=== PATIENT | male | born 1950 | race Caucasian/White ===

== ENCOUNTER 2017-04-11 23:14 | Observation (INO) | payer MEDICARE, OTHER ==
--- NOTE | 2017-04-11 23:51 | C.PDOC ---
History Of Present Illness Patient was brought via EMS to ER for acute ETOH intoxication. Patient denies suicidal, homicidal ideation or any physical complaints. Time Seen by Provider: 04/11/17 23:50 Chief Complaint (Nursing): Substance Abuse History Per: Patient, EMS History/Exam Limitations: no limitations Onset/Duration Of Symptoms: Hrs Current Symptoms Are (Timing): Still Present Suicide/Self Injury Attempted (Context): None Modifying Factor(s): Alcohol Severity: None Pain Scale Rating Of: 0 Associated Symptoms: denies: Depression, Suicidal Thoughts, Suicidal Plan Involuntary Hold By: None Recent travel outside of the [place]: No Past Medical History Reviewed: Historical Data, Nursing Documentation, Vital Signs Vital Signs: Last Vital Signs Temp 97.8 F 04/12/17 03:25 Pulse 71 04/12/17 03:25 Resp 18 04/12/17 03:25 BP 106/59 L 04/12/17 03:25 Pulse Ox 96 04/12/17 03:25 - Medical History PMH: Gall Bladder Disease, HTN Surgical History: Cholecystectomy Family History: States: No Known Family Hx - Social History Hx Tobacco Use: Yes Hx Alcohol Use: Yes Hx Substance Use: No - Immunization History Hx Tetanus Toxoid Vaccination: No Hx Influenza Vaccination: No Hx Pneumococcal Vaccination: No Review Of Systems Constitutional: Negative for: Fever, Chills Gastrointestinal: Negative for: Nausea, Vomiting, Diarrhea Psych: Negative for: Suicidal ideation, Other (Homicidal Ideation) Physical Exam - Physical Exam Appears: Non-toxic, Other (ETOH on breath) Skin: Warm, Dry Oral Mucosa: Moist Chest: Symmetrical, No Tenderness Cardiovascular: Rhythm Regular, No Murmur Respiratory: No Rales, No Rhonchi, No Wheezing Gastrointestinal/Abdominal: Soft, No Tenderness Neurological/Psych: Oriented x3 ED Course And Treatment O2 Sat by Pulse Oximetry: 96 (Room air) Pulse Ox Interpretation: Normal Reevaluation Time: 05:07 Reassessment Condition: Improved ED OBSERVATION Discharge: Yes Date of observation admission: 04/11/17 Time of observation admission: 23:51 - Observation admission statement Patient is being placed in observation because:: acute alcohol intoxication - Goals of Observation Goals of observation are:: sobriety - Progress Note Progress Note: 04/11/17 23:51 vitals stable 04/12/17 04:07 vitals stable Disposition Counseled Patient/Family Regarding: Studies Performed, Diagnosis, Need For Followup - Disposition Disposition: HOME/ ROUTINE Disposition Time: 23:50 Condition: FAIR - Clinical Impression Clinical Impression: Alcohol intoxication, Alcohol abuse - Scribe Statement The provider has reviewed the documentation as recorded by the Scribmilvia Gomez All medical record entries made by the Scribe were at my direction and personally dictated by me. I have reviewed the chart and agree that the record accurately reflects my personal performance of the history, physical exam, medical decision making, and the department course for this patient. I have also personally directed, reviewed, and agree with the discharge instructions and disposition. Decision To Admit - . Patient Diagnosis: Alcohol intoxication, Alcohol abuse
[2017-04-12 06:41] VITALS: BP 116/68; PULSE 81; RESP 20; TEMP 98; O2SAT 97
== END 2017-04-12 05:08 | disposition home or self-care (01) ==
LOC: C.ER 23:14 → C.9OBSV 23:51
PROVIDERS: ADMIT Emergency Medicine; ATTEND Emergency Medicine
DX: F10.129 Alcohol abuse with intoxication, unspecified (principal); I10 Essential (primary) hypertension; Z87.891 Personal history of nicotine dependence; Y90.9 Presence of alcohol in blood, level not specified
CPT/HCPCS: G0378 ×2

== ENCOUNTER 2017-04-12 13:44 | Inpatient (IN) | payer MEDICARE, OTHER ==
--- NOTE | 2017-04-12 14:06 | C.PDOC ---
History Of Present Illness 55 year old patient is brought to the ED by ambulance for public alcohol intoxication. Patient was recently here for the same reason. He was also recently released from incarceration. Patient has a history of alcohol abuse. Pt is obtunded and not answering questions. Per EMS patient denies any head injury, nausea, vomiting, or shortness of breath. Time Seen by Provider: 04/12/17 14:03 Chief Complaint (Nursing): Substance Abuse History Per: Patient, EMS History/Exam Limitations: intoxication Onset/Duration Of Symptoms: Other Current Symptoms Are (Timing): Still Present Suicide/Self Injury Attempted (Context): None Modifying Factor(s): Alcohol Severity: None Pain Scale Rating Of: 0 Recent travel outside of the [place]: No Additional History Per: EMS Past Medical History Reviewed: Historical Data, Nursing Documentation, Vital Signs Vital Signs: Last Vital Signs Temp 97.2 F L 04/12/17 16:20 Pulse 77 04/12/17 17:38 Resp 19 04/12/17 17:38 BP 116/59 L 04/12/17 17:38 Pulse Ox 94 L 04/12/17 17:38 Family History: States: Unknown Family Hx - Social History Hx Alcohol Use: Yes Hx Substance Use: No Review Of Systems Except As Marked, All Systems Reviewed And Found Negative. Constitutional: Positive for: Other (intoxicated) Respiratory: Negative for: Shortness of Breath Gastrointestinal: Negative for: Nausea, Vomiting Neurological: Negative for: Other (head injury) Psych: Negative for: Suicidal ideation Physical Exam - Physical Exam Appears: Other (elderly, disheveled, intoxicated, obtunded, not answering questions, responds purposefully to painful stimulus.) Skin: Warm, Dry Head: Atraumatic, Normacephalic Throat: Other (+AOB) Neck: Normal ROM, Supple Chest: Symmetrical Cardiovascular: Rhythm Regular Respiratory: Normal Breath Sounds, No Rales, No Rhonchi, No Wheezing Extremity: Normal ROM Neurological/Psych: No Response To Commands Pain Response: Other (arousable to painful stimuli) ED Course And Treatment - Laboratory Results Result Diagrams: 04/12/17 15:44 04/12/17 15:07 Lab Interpretation: Abnormal (ETOH 538, UDS pending) ECG: Interpreted By Me ECG Rhythm: Sinus Rhythm ECG Interpretation: Normal Rate From EC O2 Sat by Pulse Oximetry: 95 (room air) Pulse Ox Interpretation: Normal - Radiology CXR: Interpreted by Me CXR Interpretation: Yes: No Acute Disease - CT Scan/US Head CT Other Rad Studies (CT/US): Read By Radiologist (Radha Mario MD), Radiology Report Reviewed CT/US Interpretation: PROCEDURE: CT HEAD WITHOUT CONTRAST. HISTORY: Overdose. COMPARISON: None available. TECHNIQUE: Axial computed tomography images were obtained through the head/brain without intravenous contrast. Radiation dose: Total exam DLP = 773.51 MGy-cm. This CT exam was performed using one or more of the following dose reduction techniques: Automated exposure control, adjustment of the mA and/or kV according to patient size, and/ or use of iterative reconstruction technique. FINDINGS: HEMORRHAGE: Right convexity subdural hypodense collections measure approximately 11 mm and 4 mm in diameter, compatible with chronic subdural hematomas. BRAIN: Diffuse atrophy with prominence of the ventricles and sulci noted. No mass effect or edema. Intracranial vascular calcifications. Scattered periventricular and subcortical white matter hypodensities, which are nonspecific, but often seen with chronic microvascular ischemic disease. Scattered probable lacunar infarcts including 8 mm left basal ganglia lacunar type infarct. VENTRICLES: Ventricular prominence may be mildly out of proportion to sulcal size. Prominence may be due to significant central volume loss or mild chronic obstructive hydrocephalus, noncommunicating variant. Normal-pressure hydrocephalus considered only if clinical triad is present. Correlate clinically. CALVARIUM: Unremarkable. PARANASAL SINUSES: Unremarkable as visualized. No significant inflammatory changes. MASTOID AIR CELLS: Unremarkable as visualized. No inflammatory changes. OTHER FINDINGS: None. IMPRESSION: Right convexity subdural hypodense collections measure approximately 11 mm and 4 mm in diameter, compatible with chronic subdural hematomas. Correlate clinically. Ventricular prominence may be mildly out of proportion to sulcal size. Prominence may be due to significant central volume loss or mild chronic obstructive hydrocephalus, noncommunicating variant. Normal-pressure hydrocephalus considered only if clinical triad is present. Correlate clinically. There probable chronic lacunar infarcts measuring up to 8 mm in the left basal ganglia. Scattered nonspecific white matter changes are evident. Please note that MRI with diffusion imaging is more sensitive in the detection of acute ischemic event. Findings discussed with Dr. Mejias on at 342 pm. Reevaluation Time: 16:41 Reassessment Condition: Improved (gradually more arousable through multiple re- evals, approx Q hour) - Physician Consult Information Outcome Of Conversation: 1600: d/w BEATRIZ Rothman [employer]- ok observe, no acute interventions necessary. 1630: d/w Dr. Olsen- Hospitalist [employer]- ok to Tele Obs. Medical Decision Making Medical Decision Making: acute on chronic alcohol intox prob chronic SDH's and hydrocephalus- contributing to pt's ataxia and frequent falls, no acute brain bleeds. Disposition Doctor Will See Patient In The: Hospital Counseled Patient/Family Regarding: Studies Performed, Diagnosis - Disposition Disposition: HOSPITALIZED Disposition Time: 16:45 Condition: FAIR - Clinical Impression Clinical Impression: Alcohol abuse, Subdural hematoma, Hydrocephalus - Scribe Statement The provider has reviewed the documentation as recorded by the Scribe Lee Ann Shaw Provider Attestation: All medical record entries made by the Scribe were at my direction and personally dictated by me. I have reviewed the chart and agree that the record accurately reflects my personal performance of the history, physical exam, medical decision making, and the department course for this patient. I have also personally directed, reviewed, and agree with the discharge instructions and disposition.
--- NOTE | 2017-04-12 14:58 | RAD ---
HISTORY: Overdosed COMPARISON: None available. TECHNIQUE: Chest, one view. FINDINGS: LUNGS: Biapical pleural thickening. No focal consolidation. Please note that chest x-ray has limited sensitivity for the detection of pulmonary masses. PLEURA: No significant pleural effusion identified. No definite pneumothorax . CARDIOVASCULAR: Heart size appears top normal. OSSEOUS STRUCTURES: Osseous demineralization. Degenerative changes of the spine and shoulders. VISUALIZED UPPER ABDOMEN: Mild elevation of the right hemidiaphragm. OTHER FINDINGS: None. IMPRESSION: No active disease. Incidental findings as above.
[2017-04-12 15:37] LABS: ALB/GLOB RATIO 1.4 (1.0-2.1); ALKALINE PHOSPHATASE 53 U/L (38-126); AST/SGOT 35 U/L (17-59); BILIRUBIN,TOTAL 0.4 mg/dL (0.2-1.3); CARBON DIOXIDE 24 mmol/L (22-30); GFR AFRICAN-AMERICAN > 60; TOTAL PROTEIN 6.9 g/dL (6.3-8.3)
[2017-04-12 15:38] LABS: ALT/SGPT 11 U/L (21-72); BLOOD UREA NITROGEN 11 mg/dL (9-20); CALCIUM 8.2 mg/dl (8.6-10.4); CHLORIDE 103 mmol/L (98-107); GLUCOSE,RANDOM 112 mg/dL (75-110); POTASSIUM 4.1 mmol/L (3.6-5.2); SODIUM 143 mmol/L (132-148)
--- NOTE | 2017-04-12 15:46 | CT ---
PROCEDURE: CT HEAD WITHOUT CONTRAST. HISTORY: Overdose COMPARISON: None available. TECHNIQUE: Axial computed tomography images were obtained through the head/brain without intravenous contrast. Radiation dose: Total exam DLP = 773.51 MGy-cm. This CT exam was performed using one or more of the following dose reduction techniques: Automated exposure control, adjustment of the mA and/or kV according to patient size, and/or use of iterative reconstruction technique. FINDINGS: HEMORRHAGE: Right convexity subdural hypodense collections measure approximately 11 mm and 4 mm in diameter, compatible with chronic subdural hematomas. BRAIN: Diffuse atrophy with prominence of the ventricles and sulci noted. No mass effect or edema. Intracranial vascular calcifications. Scattered periventricular and subcortical white matter hypodensities, which are nonspecific, but often seen with chronic microvascular ischemic disease. Scattered probable lacunar infarcts including 8 mm left basal ganglia lacunar type infarct. VENTRICLES: Ventricular prominence may be mildly out of proportion to sulcal size. Prominence may be due to significant central volume loss or mild chronic obstructive hydrocephalus, noncommunicating variant. Normal-pressure hydrocephalus considered only if clinical triad is present. Correlate clinically. CALVARIUM: Unremarkable. PARANASAL SINUSES: Unremarkable as visualized. No significant inflammatory changes. MASTOID AIR CELLS: Unremarkable as visualized. No inflammatory changes. OTHER FINDINGS: None. IMPRESSION: Right convexity subdural hypodense collections measure approximately 11 mm and 4 mm in diameter, compatible with chronic subdural hematomas. Correlate clinically. Ventricular prominence may be mildly out of proportion to sulcal size. Prominence may be due to significant central volume loss or mild chronic obstructive hydrocephalus, noncommunicating variant. Normal-pressure hydrocephalus considered only if clinical triad is present. Correlate clinically. There probable chronic lacunar infarcts measuring up to 8 mm in the left basal ganglia. Scattered nonspecific white matter changes are evident. Please note that MRI with diffusion imaging is more sensitive in the detection of acute ischemic event. Findings discussed with Dr. Mejias on 04/12/17 at 342 pm.
[2017-04-12 15:49] LABS: BASO # 0.1 K/uL (0.0-0.2); BASO % 1.1 % (0.0-2.0); EOS # 0.4 K/uL (0.0-0.7); EOS % 4.1 % (0.0-4.0); HEMATOCRIT 37.3 % (35.0-51.0); LYMPH # 2.9 K/uL (1.0-4.3); LYMPH % 28.4 % (20.0-40.0); MEAN CELL VOLUME 91.1 fL (80.0-94.0); MEAN CORPUSCULAR HGB CONC 32.9 g/dL (33.0-37.0); MEAN PLATELET VOLUME 6.2 fL (7.2-11.7); MONO % 9.3 % (0.0-10.0); NRBC % 0.1 % (0.0-2.0); RED CELL DISTRIBUTION WIDTH 14.6 % (11.5-14.5); WHITE BLOOD COUNT 10.3 K/uL (4.8-10.8)
[2017-04-12 16:00] LABS: ALCOHOL SERUM 538 mg/dl (0-10)
--- NOTE | 2017-04-12 17:32 | CP.PCM.HP ---
<Trevon Sutherland - Last Filed: 04/12/17 17:29> History of Present Illness - History of Present Illness History of Present Illness: This is a 55 yo male with unknown past medical hx presenting to ER in obtunded state. Pt apparently stumbled into ER. He is resting in bed. Hx unable to be obtained. ROS unable to be obtained. Pt is in obtunded state. Head CT shows chronic subdural hematoma and alcohol 538, unable to find past records. PMH: Unknown PSH: Unknown Allergies: Unknown FH: Unknown Current meds: Unknown Social hx: Heavy drinker. Other social hx unknown. Present on Admission - Present on Admission Any Indicators Present on Admission: No History of DVT/PE: No History of Uncontrolled Diabetes: No Urinary Catheter: No Decubitus Ulcer Present: No Review of Systems - Review of Systems Systems not reviewed;Unavailable: Altered Mental Status, Intoxicated Past Patient History - Infectious Disease Hx of Infectious Diseases: None - Tetanus Immunizations Tetanus Immunization: Unknown - Past Medical History & Family History Past Medical History?: Yes Past Family History: Reviewed and not pertinent - Past Social History Smoking Status: Unknown If Ever Smoked Chewing Tobacco Use: No Cigar Use: No Alcohol: > 2 Drinks/Day Drugs: Denies Home Situation {Lives}: Homeless Domestic Violence: Negative - PSYCHIATRIC Hx Substance Use: No Meds Allergies/Adverse Reactions: Allergies Allergy/AdvReac Type Severity Reaction Status Date / Time Unobtainable Allergy Unverified 04/12/17 13:56 Physical Exam - Constitutional Appears: Other Additional comments: Obtunded, disheveled - Head Exam Head Exam: ATRAUMATIC, NORMAL INSPECTION, NORMOCEPHALIC - Eye Exam Eye Exam: EOMI - ENT Exam ENT Exam: Mucous Membranes Moist - Neck Exam Neck exam: Positive for: Full Rom, Normal Inspection - Respiratory Exam Respiratory Exam: Decreased Breath Sounds. absent: Respiratory Distress - Cardiovascular Exam Cardiovascular Exam: +S1, +S2 - GI/Abdominal Exam GI & Abdominal Exam: Normal Bowel Sounds, Soft. absent: Tenderness - Extremities Exam Extremities exam: Positive for: full ROM, normal inspection - Back Exam Back exam: NORMAL INSPECTION - Neurological Exam Neurological exam: Altered - Psychiatric Exam Additional comments: Unable to assess - Skin Skin Exam: Dry, Intact, Normal Color, Warm Results - Vital Signs Recent Vital Signs: Last Vital Signs Temp 97.2 F L 04/12/17 16:20 Pulse 85 04/12/17 16:33 Resp 18 04/12/17 16:33 BP 111/68 04/12/17 16:33 Pulse Ox 95 04/12/17 16:55 - Labs Result Diagrams: 04/12/17 15:44 04/12/17 15:07 Labs: Laboratory Results - last 24 hr 04/12/17 16:54 Urine Opiates Screen Negative Urine Methadone Screen Negative Ur Barbiturates Screen Negative Ur Phencyclidine Scrn Negative Ur Amphetamines Screen Negative U Benzodiazepines Scrn Negative U Oth Cocaine Metabols Negative U Cannabinoids Screen Negative Assessment & Plan - Assessment and Plan (Free Text) Assessment: This is a 55 yo male with unknown past medical or surgical hx presenting with obtunded state 1. Alcohol abuse -ativan IV prn -o2 by nasal cannula -CIWA protocol -neurochecks q 2 -NPO -neurology consult. Dr. Yara Albert -telemetry bed -seizure precautions -aspiration precautions -fall precautions -am labs -head ct shows evidence of chronic subdural hematoma -neurosx: no intervention -alcohol level 538 2. GI/DVT ppx -scds -protonix daily discussed with Dr. Chang. <Wu Chang - Last Filed: 05/19/17 12:20> Results - Vital Signs Recent Vital Signs: Last Vital Signs Temp 97.9 F 04/14/17 08:48 Pulse 87 04/14/17 08:48 Resp 20 04/14/17 08:48 BP 147/77 04/14/17 08:48 Pulse Ox 97 04/14/17 08:48 - Labs Result Diagrams: 04/14/17 07:36 04/14/17 07:36 Attending/Attestation - Attestation I have personally seen and examined this patient.: Yes I have fully participated in the care of the patient.: Yes I have reviewed all pertinent clinical information: Yes Notes (Text): Patient Seen and examined with the resident. Agree with the resident's evaluation, assessment and plan. This is a 55 yo male with unknown past medical or surgical hx presenting with obtunded state 1. Alcohol abuse 2. Chronic Subdural Hematoma 3. Alcohol Intoxication
[2017-04-12] MEDS ORDERED: Multivitamin (MVI) 10 ML, Thiamine 100 MG, Folic Acid 1 MG in Sodium Chloride 0.9% 1,00... IV ONE (17:52)
--- NOTE | 2017-04-12 18:45 | CON ---
DATE: 04/12/2017 This obviously unknown individual was brought to the [facility] ER markedly intoxicated with an alcohol level of 550. CT of the brain was performed which showed a small subdural collection. Neuro surgical evaluation was requested. No history can be obtained obviously. His age was designated as 55. I am not sure how this was obtai luz. PHYSICAL EXAMINATION: GENERAL: The patient is just lying on his side in the position. He is moving all 4 extremitie s. There is no verbalization. There is no command following. CT of the brain shows a small right anterior frontal chronic subdural collection with minimal, if any , mass effect. IMPRESSION AND PLAN: The subdural is a red marquez, of no clinical significance at this time. Obvio usly, he is treated for his alcohol intoxication. My only recommendation, if this was somehow feasib le, would be to repeat the scan in approximately 2-3 weeks. Christiano Jerry MD cc: [id number] TT: 04/12/2017 18:44:20 Confirmation # [id number] Dictation # [id number] alcides
[2017-04-13 01:29] VITALS: RESP 20
[2017-04-13 08:16] LABS: BASO # 0.1 K/uL (0.0-0.2); BASO % 0.8 % (0.0-2.0); EOS # 0.1 K/uL (0.0-0.7); EOS % 1.1 % (0.0-4.0); HEMATOCRIT 38.2 % (35.0-51.0); LYMPH # 2.2 K/uL (1.0-4.3); LYMPH % 15.9 % (20.0-40.0); MEAN CELL VOLUME 91.2 fL (80.0-94.0); MEAN CORPUSCULAR HEMOGLOBIN 29.8 pg (27.0-31.0); MEAN CORPUSCULAR HGB CONC 32.7 g/dL (33.0-37.0); MONO # 0.7 K/uL (0.0-0.8); RED CELL DISTRIBUTION WIDTH 14.5 % (11.5-14.5); WHITE BLOOD COUNT 13.8 K/uL (4.8-10.8)
[2017-04-13 08:32] LABS: CHLORIDE 108 mmol/L (98-107)
[2017-04-13 08:33] LABS: POTASSIUM 3.6 mmol/L (3.6-5.2); SODIUM 145 mmol/L (132-148)
[2017-04-13 08:35] LABS: ALB/GLOB RATIO 1.2 (1.0-2.1); ALKALINE PHOSPHATASE 68 U/L (38-126); ALT/SGPT 20 U/L (21-72); AST/SGOT 37 U/L (17-59); BILIRUBIN,TOTAL 0.4 mg/dL (0.2-1.3); BLOOD UREA NITROGEN 13 mg/dL (9-20); CARBON DIOXIDE 20 mmol/L (22-30); GFR AFRICAN-AMERICAN > 60; GLUCOSE,RANDOM 61 mg/dL (75-110); TOTAL PROTEIN 6.7 g/dL (6.3-8.3)
[2017-04-13 08:36] LABS: MAGNESIUM 1.6 mg/dL (1.6-2.3); PHOSPHOROUS 3.8 mg/dL (2.5-4.5)
[2017-04-13] MEDS: Dextrose 50% SYRINGE Inj (50 ml) IV STA ×2 (09:30→09:50)
--- NOTE | 2017-04-13 13:47 | CON ---
DATE: 04/13/2017 REASON FOR CONSULTATION: Subdural hematoma. HISTORY OF PRESENTING ILLNESS: The patient is a 67-year-old male who was brought to the hospital wit h an obtunded state. The patient apparently stumbled into ER. The patient is not able to give histo ry. The patient had a CT scan of the head done, which shows chronic subdural hematoma and an alcohol level of 538. The patient unable to give any history. REVIEW OF SYSTEMS: The patient is not answering questions; however, saying no to headache or dizzine ss. There is no cough, no sputum production, no pyuria. PAST MEDICAL HISTORY: Unknown. MEDICATIONS AT HOME: Unknown. SOCIAL HISTORY: Positive for alcohol abuse. Positive for smoking. FAMILY HISTORY: Unknown. PHYSICAL EXAMINATION: GENERAL: The patient is an elderly male lying on the bed in no acute distress. VITAL SIGNS: Blood pressure is 123/76, heart rate is 84 per minute, breathing at a rate of 16 per mi nute, temperature is 98.1 degrees Fahrenheit. HEENT: Normocephalic, atraumatic. NECK: Supple. There are no carotid bruits. LUNGS: Clear. CARDIOVASCULAR: S1, S2 audible. No murmurs. ABDOMEN: Soft and nontender with bowel sounds present. NEUROLOGIC EXAMINATION: Mental status: The patient is awake and alert. He follows some simple comm ands. He is not verbalizing. Cranial nerve examination: Pupils 3 mm bilaterally reactive to light. Visual blum are full to threat. Extraocular movements are intact. There is no facial asymmetry. He is moving all 4 extremities with slightly less movement of the right upper extremity. Sensory: He withdraws all 4 extremities to noxious painful stimuli. Gait is deferred at the moment. LABORATORY DATA: Labs reviewed, shows WBC of 10.3, hemoglobin 12.3, hematocrit of 37.3 and platelets of 334. Sodium is 143, potassium 4.1, chloride of 103, carbon dioxide 24, BUN of 11, creatinine 0.7 , and glucose of 119. His alcohol level was 538. He had a CT scan of the head done which showed rig ht convexity subdural hypodense collection, measures approximately 11 mm and 4 mm in diameter compati ble with chronic subdural hematoma. IMPRESSION: 1. Altered mental status, which appears to be secondary to alcohol intoxication. 2. Chronic subdural hematoma. RECOMMENDATION: 1. The patient to have an MRI of the brain without contrast as there appears to be slight weakness i n the right upper extremity. 2. The patient to have IV hydration. 3. The patient to be on Ativan for alcohol withdrawal to prevent alcohol withdrawal symptoms. 4. The patient to have multivitamin and thiamine. 5. The patient was evaluated by neurosurgery and no neurosurgical intervention is recommended at pre sent. The patient to have repeat CT head in 10 days. However, I will obtain MRI of the brain while patient is here to see any other focal neurologic deficits responsible for patient's mental status ch anges except alcohol intoxication. 6. Please continue other treatment and supportive care. Thank you for the opportunity to participate in the care of this patient. Yara Albert MD cc: [id number] TT: 04/13/2017 13:47:00 Confirmation # [id number] Dictation # [id number]
--- NOTE | 2017-04-13 13:59 | CP.PCM.PN ---
<Trevon Sutherland - Last Filed: 04/13/17 13:59> Subjective - Date & Time of Evaluation Date of Evaluation: 04/13/17 Time of Evaluation: 13:55 - Subjective Subjective: Med progress note. Attending: Dr. Chang Pt seen and examined at bedside. No acute distress. No events overnight. Pt to go for MRI, unable to provide hx. ROS unable to be obtained. Objective - Vital Signs/Intake and Output Vital Signs (last 24 hours): Temp Pulse Resp BP Pulse Ox 98.1 F 80 20 123/76 95 04/12/17 23:45 04/13/17 07:30 04/12/17 23:45 04/12/17 23:45 04/12/17 23:45 Intake and Output: 04/13/17 04/13/17 06:59 18:59 Intake Total 800 Output Total 200 Balance 600 - Medications Medications: Current Medications Folic Acid (Folic Acid) 1 mg PO DAILY MARGO Lorazepam (Ativan) 2 mg IVP Q6H PRN PRN Reason: Anxiety Last Admin: 04/13/17 11:30 Dose: 2 mg Pantoprazole Sodium (Protonix Inj) 40 mg IVP DAILY MARGO Last Admin: 04/13/17 11:33 Dose: 40 mg Thiamine HCl (Vitamin B1 Tab) 100 mg PO DAILY [facility] - Labs Labs: 04/13/17 07:58 04/13/17 07:58 - Constitutional Appears: Non-toxic, No Acute Distress, Unkempt - Head Exam Head Exam: ATRAUMATIC, NORMAL INSPECTION, NORMOCEPHALIC - Eye Exam Eye Exam: EOMI - ENT Exam ENT Exam: Mucous Membranes Moist - Neck Exam Neck Exam: Full ROM, Normal Inspection - Respiratory Exam Respiratory Exam: NORMAL BREATHING PATTERN. absent: Respiratory Distress - Cardiovascular Exam Cardiovascular Exam: +S1, +S2 - GI/Abdominal Exam GI & Abdominal Exam: Soft, Normal Bowel Sounds. absent: Tenderness - Extremities Exam Extremities Exam: Full ROM, Normal Inspection - Back Exam Back Exam: NORMAL INSPECTION - Neurological Exam Neurological Exam: Altered - Psychiatric Exam Psychiatric exam: Flat Affect - Skin Skin Exam: Dry, Intact, Normal Color, Warm Assessment and Plan - Assessment and Plan (Free Text) Assessment: This is a 55 yo male with unknown past medical or surgical hx presenting with obtunded state 1. Alcohol abuse -ativan IV prn -o2 by nasal cannula -EVEWA protocol -neurochecks q 2 -NPO>> changed to regular diet. -neurology consult. Dr. Yara Albert -telemetry bed -seizure precautions -aspiration precautions -fall precautions -am labs -head ct shows evidence of chronic subdural hematoma -neurosx: no intervention -alcohol level 538 on admission -pt to go for mri without contrast of the brain for some weakness in extremities -thaimine 100 mg po daily -folic acid 1 mg p daily 2. GI/DVT ppx -scds -protonix daily discussed with Dr. Chnag. <Wu Chang - Last Filed: 05/19/17 12:21> Objective - Vital Signs/Intake and Output Vital Signs (last 24 hours): Temp Pulse Resp BP Pulse Ox 97.9 F 87 20 147/77 97 04/14/17 08:48 04/14/17 08:48 04/14/17 08:48 04/14/17 08:48 04/14/17 08:48 - Labs Labs: 04/14/17 07:36 04/14/17 07:36 Attending/Attestation - Attestation I have personally seen and examined this patient.: Yes I have fully participated in the care of the patient.: Yes I have reviewed all pertinent clinical information, including history, physical exam and plan: Yes Notes (Text): Patient Seen and examined with the resident. Agree with the resident's evaluation, assessment and plan. This is a 55 yo male with unknown past medical or surgical hx presenting with obtunded state 1. Alcohol abuse 2. Chronic Subdural Hematoma 3. Alcohol Intoxication
[2017-04-14 08:01] LABS: CHLORIDE 98 mmol/L (98-107); SODIUM 135 mmol/L (132-148)
[2017-04-14 08:02] LABS: POTASSIUM 3.7 mmol/L (3.6-5.2)
[2017-04-14 08:03] LABS: BASO # 0.1 K/uL (0.0-0.2); BASO % 1.1 % (0.0-2.0); EOS # 0.1 K/uL (0.0-0.7); EOS % 0.7 % (0.0-4.0); GFR AFRICAN-AMERICAN > 60; HEMATOCRIT 38.9 % (35.0-51.0); LYMPH % 22.5 % (20.0-40.0); MEAN CELL VOLUME 90.5 fL (80.0-94.0); MEAN CORPUSCULAR HEMOGLOBIN 30.3 pg (27.0-31.0); MEAN CORPUSCULAR HGB CONC 33.4 g/dL (33.0-37.0); MEAN PLATELET VOLUME 6.5 fL (7.2-11.7); MONO % 10.9 % (0.0-10.0); NRBC % 0.1 % (0.0-2.0); RED CELL DISTRIBUTION WIDTH 14.6 % (11.5-14.5); WHITE BLOOD COUNT 8.9 K/uL (4.8-10.8)
[2017-04-14 08:04] LABS: ALB/GLOB RATIO 1.4 (1.0-2.1); ALKALINE PHOSPHATASE 65 U/L (38-126); ALT/SGPT 15 U/L (21-72); AST/SGOT 32 U/L (17-59); BLOOD UREA NITROGEN 10 mg/dL (9-20); CARBON DIOXIDE 24 mmol/L (22-30); GLUCOSE,RANDOM 92 mg/dL (75-110); PHOSPHOROUS 2.5 mg/dL (2.5-4.5); TOTAL PROTEIN 6.5 g/dL (6.3-8.3)
[2017-04-14 08:05] LABS: CALCIUM 8.5 mg/dl (8.6-10.4); MAGNESIUM 1.7 mg/dL (1.6-2.3)
[2017-04-14 08:49] VITALS: BP 147/77; PULSE 87; TEMP 97.9; O2SAT 97
--- NOTE | 2017-04-14 09:24 | CP.PCM.DIS ---
<Trevon Sutherland - Last Filed: 04/14/17 09:27> Provider - Provider Date of Admission: 04/12/17 16:39 Attending physician: Perfecto Olsen DO Consults: Neurology 1. Dr. Yara Albert Time Spent in preparation of Discharge (in minutes): 45 Hospital Course - Lab Results Lab Results: Most Recent Lab Values WBC 8.9 K/uL (4.8-10.8) 04/14/17 07:36 RBC 4.30 Mil/uL (4.40-5.90) L 04/14/17 07:36 Hgb 13.0 g/dL (12.0-18.0) 04/14/17 07:36 Hct 38.9 % (35.0-51.0) 04/14/17 07:36 MCV 90.5 fL (80.0-94.0) 04/14/17 07:36 MCH 30.3 pg (27.0-31.0) 04/14/17 07:36 MCHC 33.4 g/dL (33.0-37.0) 04/14/17 07:36 RDW 14.6 % (11.5-14.5) H 04/14/17 07:36 Plt Count 261 K/uL (130-400) 04/14/17 07:36 MPV 6.5 fL (7.2-11.7) L 04/14/17 07:36 Neut % (Auto) 64.8 % (50.0-75.0) 04/14/17 07:36 Lymph % (Auto) 22.5 % (20.0-40.0) 04/14/17 07:36 Gem % (Auto) 10.9 % (0.0-10.0) H 04/14/17 07:36 Eos % (Auto) 0.7 % (0.0-4.0) 04/14/17 07:36 Baso % (Auto) 1.1 % (0.0-2.0) 04/14/17 07:36 Neut # 5.7 K/uL (1.8-7.0) 04/14/17 07:36 Lymph # 2.0 K/uL (1.0-4.3) 04/14/17 07:36 Gem # 1.0 K/uL (0.0-0.8) H 04/14/17 07:36 Eos # 0.1 K/uL (0.0-0.7) 04/14/17 07:36 Baso # 0.1 K/uL (0.0-0.2) 04/14/17 07:36 Sodium 135 mmol/L (132-148) 04/14/17 07:36 Potassium 3.7 mmol/L (3.6-5.2) 04/14/17 07:36 Chloride 98 mmol/L (98-107) 04/14/17 07:36 Carbon Dioxide 24 mmol/L (22-30) 04/14/17 07:36 Anion Gap 15 (10-20) 04/14/17 07:36 BUN 10 mg/dL (9-20) 04/14/17 07:36 Creatinine 0.6 MG/DL (0.8-1.5) L 04/14/17 07:36 Est GFR ( Amer) > 60 04/14/17 07:36 Est GFR (Non-Af Amer) > 60 04/14/17 07:36 POC Glucose (mg/dL) 208 mg/dL (65-110) H 04/13/17 11:47 Random Glucose 92 mg/dL (75-110) 04/14/17 07:36 Calcium 8.5 mg/dl (8.6-10.4) L 04/14/17 07:36 Phosphorus 2.5 mg/dL (2.5-4.5) 04/14/17 07:36 Magnesium 1.7 mg/dL (1.6-2.3) 04/14/17 07:36 Total Bilirubin 1.0 mg/dL (0.2-1.3) 04/14/17 07:36 AST 32 U/L (17-59) 04/14/17 07:36 ALT 15 U/L (21-72) L D 04/14/17 07:36 Alkaline Phosphatase 65 U/L (38-126) 04/14/17 07:36 Total Protein 6.5 g/dL (6.3-8.3) 04/14/17 07:36 Albumin 3.8 g/dL (3.5-5.0) 04/14/17 07:36 Globulin 2.8 gm/dL (2.2-3.9) 04/14/17 07:36 Albumin/Globulin Ratio 1.4 (1.0-2.1) 04/14/17 07:36 Salicylates < 1.0 mg/dL 1 04/12/17 16:08 Urine Opiates Screen Negative (NEGATIVE) 04/12/17 16:54 Urine Methadone Screen Negative (NEGATIVE) 04/12/17 16:54 Acetaminophen < 10.0 ug/mL (10.0-30.0) L 04/12/17 16:08 Ur Barbiturates Screen Negative (NEGATIVE) 04/12/17 16:54 Ur Phencyclidine Scrn Negative (NEGATIVE) 04/12/17 16:54 Ur Amphetamines Screen Negative (NEGATIVE) 04/12/17 16:54 U Benzodiazepines Scrn Negative (NEGATIVE) 04/12/17 16:54 U Oth Cocaine Metabols Negative (NEGATIVE) 04/12/17 16:54 U Cannabinoids Screen Negative (NEGATIVE) 04/12/17 16:54 Alcohol, Quantitative 538 mg/dl (0-10) H 04/12/17 15:07 - Hospital Course Hospital Course: Admit date- April 12, 2017 Pt left AMA April 14, 2017 Attending: Dr. Chang Consults. 1. Yara Albert- Neurology 2. Claritza- Neurosurgery Discharge diagnoses 1. Alcohol abuse 2. Chronic subdural hematoma 3. Weakness upper ext. HPI: see h/p Lab data: see lab data section Hospital course This is a 55 yo male with unknown past medical hx presenting to ER in obtunded state. Pt apparently stumbled into ER. He is resting in bed. Hx unable to be obtained. ROS unable to be obtained. Pt is in obtunded state. Head CT shows chronic subdural hematoma and alcohol 538, unable to find past records. 1. Alcohol abuse -ativan IV prn -o2 by nasal cannula -CIWA protocol -neurochecks q 2 -NPO>> changed to regular diet. -neurology consult. Dr. Yara Albert -telemetry bed -seizure precautions -aspiration precautions -fall precautions -am labs -head ct shows evidence of chronic subdural hematoma -neurosx: no intervention -alcohol level 538 on admission -pt to go for mri without contrast of the brain for some weakness in extremities -thaimine 100 mg po daily -folic acid 1 mg p daily 2. weakness in the upper extremity -neurology consult. -MRI pending 3. GI/DVT ppx -scds -protonix daily Discharge meds/instructions Pt left against medical advice. Pt explained all risks. - Date & Time of H&P Date of H&P: 04/12/17 Time of H&P: 17:29 Discharge Exam - Head Exam Head Exam: ATRAUMATIC, NORMAL INSPECTION, NORMOCEPHALIC - Eye Exam Eye Exam: EOMI - ENT Exam ENT Exam: Mucous Membranes Dry - Neck Exam Neck exam: Full Rom, Normal Inspection - Respiratory Exam Respiratory Exam: NORMAL BREATHING PATTERN - Cardiovascular Exam Cardiovascular Exam: +S1, +S2 - GI/Abdominal Exam GI & Abdominal Exam: Normal Bowel Sounds - Extremities Exam Extremities exam: full ROM, normal inspection - Neurological Exam Neurological exam: Alert, CN II-XII Intact, Oriented x3 - Psychiatric Exam Psychiatric exam: Flat Affect - Skin Skin Exam: Dry, Intact, Normal Color, Warm Discharge Plan - Follow Up Plan Condition: FAIR Disposition: AGAINST MEDICAL ADVICE <Wu Chang - Last Filed: 05/19/17 12:22> Provider - Provider Date of Admission: 04/12/17 16:39 Attending physician: Perfecto Olsen, Hospital Course - Lab Results Lab Results: Most Recent Lab Values WBC 8.9 K/uL (4.8-10.8) 04/14/17 07:36 RBC 4.30 Mil/uL (4.40-5.90) L 04/14/17 07:36 Hgb 13.0 g/dL (12.0-18.0) 04/14/17 07:36 Hct 38.9 % (35.0-51.0) 04/14/17 07:36 MCV 90.5 fL (80.0-94.0) 04/14/17 07:36 MCH 30.3 pg (27.0-31.0) 04/14/17 07:36 MCHC 33.4 g/dL (33.0-37.0) 04/14/17 07:36 RDW 14.6 % (11.5-14.5) H 04/14/17 07:36 Plt Count 261 K/uL (130-400) 04/14/17 07:36 MPV 6.5 fL (7.2-11.7) L 04/14/17 07:36 Neut % (Auto) 64.8 % (50.0-75.0) 04/14/17 07:36 Lymph % (Auto) 22.5 % (20.0-40.0) 04/14/17 07:36 Gem % (Auto) 10.9 % (0.0-10.0) H 04/14/17 07:36 Eos % (Auto) 0.7 % (0.0-4.0) 04/14/17 07:36 Baso % (Auto) 1.1 % (0.0-2.0) 04/14/17 07:36 Neut # 5.7 K/uL (1.8-7.0) 04/14/17 07:36 Lymph # 2.0 K/uL (1.0-4.3) 04/14/17 07:36 Gem # 1.0 K/uL (0.0-0.8) H 04/14/17 07:36 Eos # 0.1 K/uL (0.0-0.7) 04/14/17 07:36 Baso # 0.1 K/uL (0.0-0.2) 04/14/17 07:36 Sodium 135 mmol/L (132-148) 04/14/17 07:36 Potassium 3.7 mmol/L (3.6-5.2) 04/14/17 07:36 Chloride 98 mmol/L (98-107) 04/14/17 07:36 Carbon Dioxide 24 mmol/L (22-30) 04/14/17 07:36 Anion Gap 15 (10-20) 04/14/17 07:36 BUN 10 mg/dL (9-20) 04/14/17 07:36 Creatinine 0.6 MG/DL (0.8-1.5) L 04/14/17 07:36 Est GFR ( Amer) > 60 04/14/17 07:36 Est GFR (Non-Af Amer) > 60 04/14/17 07:36 POC Glucose (mg/dL) 208 mg/dL (65-110) H 04/13/17 11:47 Random Glucose 92 mg/dL (75-110) 04/14/17 07:36 Calcium 8.5 mg/dl (8.6-10.4) L 04/14/17 07:36 Phosphorus 2.5 mg/dL (2.5-4.5) 04/14/17 07:36 Magnesium 1.7 mg/dL (1.6-2.3) 04/14/17 07:36 Total Bilirubin 1.0 mg/dL (0.2-1.3) 04/14/17 07:36 AST 32 U/L (17-59) 04/14/17 07:36 ALT 15 U/L (21-72) L D 04/14/17 07:36 Alkaline Phosphatase 65 U/L (38-126) 04/14/17 07:36 Total Protein 6.5 g/dL (6.3-8.3) 04/14/17 07:36 Albumin 3.8 g/dL (3.5-5.0) 04/14/17 07:36 Globulin 2.8 gm/dL (2.2-3.9) 04/14/17 07:36 Albumin/Globulin Ratio 1.4 (1.0-2.1) 04/14/17 07:36 Salicylates < 1.0 mg/dL 1 04/12/17 16:08 Urine Opiates Screen Negative (NEGATIVE) 04/12/17 16:54 Urine Methadone Screen Negative (NEGATIVE) 04/12/17 16:54 Acetaminophen < 10.0 ug/mL (10.0-30.0) L 04/12/17 16:08 Ur Barbiturates Screen Negative (NEGATIVE) 04/12/17 16:54 Ur Phencyclidine Scrn Negative (NEGATIVE) 04/12/17 16:54 Ur Amphetamines Screen Negative (NEGATIVE) 04/12/17 16:54 U Benzodiazepines Scrn Negative (NEGATIVE) 04/12/17 16:54 U Oth Cocaine Metabols Negative (NEGATIVE) 04/12/17 16:54 U Cannabinoids Screen Negative (NEGATIVE) 04/12/17 16:54 Alcohol, Quantitative 538 mg/dl (0-10) H 04/12/17 15:07 Attending/Attestation - Attestation I have personally seen and examined this patient.: Yes I have fully participated in the care of the patient.: Yes I have reviewed all pertinent clinical information, including history, physical exam and plan: Yes Notes (Text): Patient Seen and examined with the resident. Agree with the resident's evaluation, assessment and plan. This is a 55 yo male with unknown past medical or surgical hx presenting with obtunded state 1. Alcohol abuse 2. Chronic Subdural Hematoma 3. Alcohol Intoxication Patient left against medical advice despite attempt to educate re risk of and injury.
--- NOTE | 2017-04-17 21:33 | CARD ---
APPROVED REPORT EKG Measurement Heart [id number] <Conclusion> Normal sinus rhythm Possible Left atrial enlargement Borderline ECG
== END 2017-04-14 09:00 | disposition left against medical advice (07) | DRG 894 ==
LOC: C.ER 13:44 → EDBD 16:39 → MERGE 16:39 → C.9E 16:39 → C.6T 17:17 → C.9E 17:23 → C.6T 17:53
PROVIDERS: ADMIT Hospitalist; ATTEND Hospitalist
DX: F10.120 Alcohol abuse with intoxication, uncomplicated (principal); S06.5X0S Traumatic subdural hemorrhage without loss of consciousness, sequela; R41.82 Altered mental status, unspecified; Y90.8 Blood alcohol level of 240 mg/100 ml or more

== ENCOUNTER 2018-03-15 14:28 | Emergency (ER) | payer MEDICARE, OTHER ==
[2018-03-15 14:30] VITALS: BMI 24.0
[2018-03-15 15:14] LABS: BASO # 0.1 K/uL (0.0-0.2); BASO % 0.9 % (0.0-2.0); EOS # 0.6 K/uL (0.0-0.7); EOS % 7.7 % (0.0-4.0); HEMOGLOBIN 12.9 g/dL (12.0-18.0); LYMPH # 2.7 K/uL (1.0-4.3); LYMPH % 37.4 % (20.0-40.0); MEAN CELL VOLUME 98.4 fL (80.0-94.0); MEAN CORPUSCULAR HEMOGLOBIN 33.9 pg (27.0-31.0); MEAN CORPUSCULAR HGB CONC 34.5 g/dL (33.0-37.0); MEAN PLATELET VOLUME 6.7 fL (7.2-11.7); MONO # 0.6 K/uL (0.0-0.8); MONO % 7.7 % (0.0-10.0); NEUT # 3.4 K/uL (1.8-7.0); NEUT % 46.3 % (50.0-75.0); RBC 3.79 Mil/uL (4.40-5.90); RED CELL DISTRIBUTION WIDTH 14.4 % (11.5-14.5); WHITE BLOOD COUNT 7.3 K/uL (4.8-10.8)
[2018-03-15 15:29] LABS: ALB/GLOB RATIO 1.2 (1.0-2.1); ALBUMIN 4.1 g/dL (3.5-5.0); ALT/SGPT 27 U/L (21-72); AST/SGOT 63 U/L (17-59); BLOOD UREA NITROGEN 20 mg/dL (9-20); CALCIUM 9.3 mg/dl (8.6-10.4); GFR AFRICAN-AMERICAN > 60; GFR NON-AFRICAN AMERICAN > 60
--- NOTE | 2018-03-15 16:10 | C.PDOC ---
History Of Present Illness 68-year-old male, brought to the emergency department by EMS after being found sleeping on street. Patient states he drinks. He denies any SI/HI. All other Hx limited because patient is a poor historian. Time Seen by Provider: 03/15/18 14:40 Chief Complaint (Nursing): Substance Abuse History/Exam Limitations: no limitations Past Medical History Reviewed: Historical Data, Nursing Documentation, Vital Signs - Medical History PMH: Gall Bladder Disease, HTN Surgical History: Cholecystectomy Family History: States: No Known Family Hx - Social History Hx Tobacco Use: Yes Hx Alcohol Use: No Hx Substance Use: No - Immunization History Hx Tetanus Toxoid Vaccination: No Hx Influenza Vaccination: No Hx Pneumococcal Vaccination: No Review Of Systems Review Of Systems: ROS cannot be obtained secondary to pt's inabilty to answer questions. Physical Exam - Physical Exam Appears: Non-toxic, No Acute Distress, Unkempt Skin: Normal Color, Warm, Dry, No Rash Head: Normacephalic Eye(s): bilateral: PERRL Nose: Normal Oral Mucosa: Moist Lips: Normal Appearing Neck: Normal ROM Cardiovascular: Rhythm Regular, No Murmur Respiratory: Normal Breath Sounds, No Accessory Muscle Use Extremity: Normal ROM, No Deformity, No Swelling ED Course And Treatment - Laboratory Results Result Diagrams: 03/15/18 15:10 03/15/18 15:10 Progress Note: Staff report that patient ambulated out of the ED. Last seen by me standing to urinate into a urinal without difficulty. Medical Decision Making Medical Decision Making: Plan: * Labs * UA * Reassess and Disposition Disposition - Disposition Disposition: ELOPEMENT - ER ONLY Disposition Time: 19:34 Condition: IMPROVED - Clinical Impression Clinical Impression: Alcohol intoxication - Scribe Statement The provider has reviewed the documentation as recorded by the Scribe (Nathaniel Turpin) All medical record entries made by the Scribe were at my direction and personally dictated by me. I have reviewed the chart and agree that the record accurately reflects my personal performance of the history, physical exam, medical decision making, and the department course for this patient. I have also personally directed, reviewed, and agree with the discharge instructions and disposition.
[2018-03-15 18:25] LABS: URINE BILIRUBIN NEGATIVE (NEGATIVE); URINE BLOOD NEGATIVE (NEGATIVE); URINE CLARITY Hazy (Clear); URINE COLOR Yellow (YELLOW); URINE GLUCOSE (UA) NORMAL (Normal); URINE HYALINE CAST >20 /lpf (0-2); URINE LEUKOCYTE ESTERASE NEG Leu/uL (Negative); URINE PROTEIN NEGATIVE (NEGATIVE)
[2018-03-15 18:42] LABS: BARBITURATES, UR NEGATIVE (NEGATIVE); BENZODIAZEPINES, UR NEGATIVE (NEGATIVE); OPIATES, UR NEGATIVE (NEGATIVE); PHENCYCLIDINE, UR NEGATIVE (NEGATIVE)
== END 2018-03-15 14:40 | disposition left against medical advice (07) ==
LOC: C.ER 14:28
DX: F10.129 Alcohol abuse with intoxication, unspecified (principal); Y90.8 Blood alcohol level of 240 mg/100 ml or more
CPT/HCPCS: 80053; 81001; 85025; 99283; G0480

== ENCOUNTER 2018-03-23 19:37 | Emergency (ER) | payer MEDICARE, OTHER ==
[2018-03-23 19:38] VITALS: BMI 24.0
[2018-03-23 19:51] VITALS: RESP 18; TEMP 98.2
--- NOTE | 2018-03-23 20:03 | C.PDOC ---
History Of Present Illness 68 year old male presents to the ED with acute alcohol intoxication for an uknown duration. Patient admits to drinking earlier today. He denies suicidal/ homicidal ideation and has no other complaints at this time. Time Seen by Provider: 03/23/18 19:53 Chief Complaint (Nursing): Substance Abuse History Per: Patient History/Exam Limitations: intoxication Onset/Duration Of Symptoms: Hrs Current Symptoms Are (Timing): Still Present Suicide/Self Injury Attempted (Context): None Modifying Factor(s): Alcohol Associated Symptoms: denies: Suicidal Thoughts, Suicidal Plan Involuntary Hold By: None Recent travel outside of the [place]: No Additional History Per: Patient Past Medical History Reviewed: Historical Data, Nursing Documentation, Vital Signs Vital Signs: Last Vital Signs Temp 98.2 F 03/24/18 00:18 Pulse 75 03/24/18 00:18 Resp 18 03/24/18 00:18 BP 124/69 03/24/18 00:18 Pulse Ox 97 03/24/18 21:43 - Medical History PMH: Gall Bladder Disease, HTN Surgical History: Cholecystectomy Family History: States: Unknown Family Hx - Social History Hx Tobacco Use: Yes Hx Alcohol Use: Yes Hx Substance Use: No - Immunization History Hx Tetanus Toxoid Vaccination: No Hx Influenza Vaccination: No Hx Pneumococcal Vaccination: No Review Of Systems Psych: Positive for: Other (EtOH intoxication ). Negative for: Suicidal ideation Physical Exam - Physical Exam Appears: Non-toxic, No Acute Distress, Other (visibly intoxicated ) Skin: Normal Color, Warm, Dry Head: Atraumatic, Normacephalic Eye(s): bilateral: Normal Inspection Oral Mucosa: Moist, Other (alcohol on breath ) Neck: Supple Chest: Symmetrical, No Deformity, No Tenderness Cardiovascular: Rhythm Regular, No Murmur Respiratory: Normal Breath Sounds, No Rales, No Rhonchi, No Wheezing Extremity: Normal ROM, Capillary Refill (less than 2 seconds ) Neurological/Psych: Other (arousable to touch and verbal stimuli ) ED Course And Treatment O2 Sat by Pulse Oximetry: 97 (on RA) Pulse Ox Interpretation: Normal Medical Decision Making Medical Decision Making: observed 6 hours pt asking for dc. steady gait, oreinted x 3 stable for dc Disposition - Disposition Referrals: Alcoholics Anonymous [Outside] Steven Sanabria MD [Primary Care Provider] - Disposition: HOME/ ROUTINE Disposition Time: 09:40 Condition: STABLE Instructions: Alcohol Abuse and Alcoholism (DC) Forms: [facility] (Yoruba) - Clinical Impression Clinical Impression: Alcohol intoxication - Scribe Statement The provider has reviewed the documentation as recorded by the Scribe (Theresa Shaw) Provider Attestation: All medical record entries made by the Scribe were at my direction and personally dictated by me. I have reviewed the chart and agree that the record accurately reflects my personal performance of the history, physical exam, medical decision making, and the department course for this patient. I have also personally directed, reviewed, and agree with the discharge instructions and disposition.
[2018-03-24 00:19] VITALS: BP 124/69; PULSE 75
[2018-03-24 21:43] VITALS: O2SAT 97
== END 2018-03-24 00:19 | disposition home or self-care (01) ==
LOC: C.ER 19:37 → SUPCPDRO 19:37 → C.ER 03-24 00:19
DX: F10.129 Alcohol abuse with intoxication, unspecified (principal)

== ENCOUNTER 2018-03-29 22:31 | Emergency (ER) | payer MEDICARE, OTHER ==
[2018-03-29 22:31] VITALS: BMI 24.0
--- NOTE | 2018-03-29 23:15 | C.PDOC ---
History Of Present Illness 68 year old male is brought to the ED by ambulance for evaluation after he was found publicly intoxicated prior to arrival. Patient admits to drinking earlier today. He has no physical signs of trauma/injuries and has no complaints at this time. Time Seen by Provider: 03/29/18 22:54 Chief Complaint (Nursing): Substance Abuse History Per: Patient, EMS History/Exam Limitations: intoxication Onset/Duration Of Symptoms: Hrs Current Symptoms Are (Timing): Still Present Suicide/Self Injury Attempted (Context): None Modifying Factor(s): Alcohol Associated Symptoms: denies: Suicidal Thoughts, Suicidal Plan Involuntary Hold By: None Recent travel outside of the [place]: No Additional History Per: Patient Past Medical History Reviewed: Historical Data, Nursing Documentation, Vital Signs Vital Signs: Last Vital Signs Temp 97.9 F 03/29/18 22:40 Pulse 84 03/29/18 22:40 Resp 16 03/29/18 22:40 BP 153/95 H 03/29/18 22:40 Pulse Ox 97 03/29/18 23:25 - Medical History PMH: Gall Bladder Disease, HTN Surgical History: Cholecystectomy Family History: States: Unknown Family Hx - Social History Hx Tobacco Use: Yes Hx Alcohol Use: Yes Hx Substance Use: No - Immunization History Hx Tetanus Toxoid Vaccination: No Hx Influenza Vaccination: No Hx Pneumococcal Vaccination: No Review Of Systems Psych: Positive for: Other (EtOH intoxication ) Physical Exam - Physical Exam Appears: Non-toxic, No Acute Distress, Other (visibly intoxicated ) Skin: Normal Color, Warm, Dry Head: Atraumatic, Normacephalic Eye(s): bilateral: Normal Inspection Oral Mucosa: Moist, Other (alcohol on breath ) Neck: Supple Chest: Symmetrical, No Deformity, No Tenderness Cardiovascular: Rhythm Regular, No Murmur Respiratory: Normal Breath Sounds, No Rales, No Rhonchi, No Wheezing Extremity: Normal ROM, Capillary Refill (less than 2 seconds ) Neurological/Psych: No Normal Speech (slurred), Other (ataxia, arousable to touch and verbal stimuli ) Gait: Unsteady ED Course And Treatment O2 Sat by Pulse Oximetry: 97 (on RA) Pulse Ox Interpretation: Normal Disposition - Disposition Disposition Time: 00:45 Condition: STABLE - Clinical Impression Clinical Impression: Alcohol abuse with intoxication - Scribe Statement The provider has reviewed the documentation as recorded by the Scribe (Theresa Shaw) Provider Attestation: All medical record entries made by the Anne-Marieibe were at my direction and personally dictated by me. I have reviewed the chart and agree that the record accurately reflects my personal performance of the history, physical exam, medical decision making, and the department course for this patient. I have also personally directed, reviewed, and agree with the discharge instructions and disposition. Physician Patient Turnover Patient Signed Over To: Daniel Orlando Handoff Comments: pending sobriety
[2018-03-30 01:55] VITALS: RESP 18
[2018-03-30 04:55] VITALS: BP 99/62; PULSE 81; TEMP 97.8; O2SAT 97
== END 2018-03-30 05:44 | disposition home or self-care (01) ==
LOC: C.ER 22:31
DX: F10.129 Alcohol abuse with intoxication, unspecified (principal)

== ENCOUNTER 2018-04-16 15:05 | Emergency (ER) | payer OTHER ==
[2018-04-16 15:05] VITALS: BMI 24.0
--- NOTE | 2018-04-16 16:28 | C.PDOC ---
History Of Present Illness 68 y/o male brought to ED via EMS for public intoxication. Pt was discharged from [facility] ED 8 hours ago for similar visit. No other complaints. Time Seen by Provider: 04/16/18 15:37 Chief Complaint (Nursing): Substance Abuse History Per: EMS History/Exam Limitations: no limitations Onset/Duration Of Symptoms: Gradual Current Symptoms Are (Timing): Still Present Past Medical History Reviewed: Historical Data, Nursing Documentation, Vital Signs Vital Signs: Last Vital Signs Temp 97.4 F L 04/16/18 17:10 Pulse 72 04/16/18 17:10 Resp 17 04/16/18 17:10 BP 123/81 04/16/18 17:10 Pulse Ox 98 04/16/18 17:10 - Medical History PMH: Gall Bladder Disease, HTN Surgical History: Cholecystectomy Family History: States: Unknown Family Hx - Social History Hx Tobacco Use: Yes Hx Alcohol Use: Yes Hx Substance Use: No - Immunization History Hx Tetanus Toxoid Vaccination: No Hx Influenza Vaccination: No Hx Pneumococcal Vaccination: No Review Of Systems Except As Marked, All Systems Reviewed And Found Negative. Constitutional: Positive for: Other. Negative for: Fever, Chills Cardiovascular: Negative for: Chest Pain, Palpitations Physical Exam - Physical Exam Appears: Non-toxic, No Acute Distress, Other (stuporous) Skin: Normal Color, Warm, Dry Head: Atraumatic, Normacephalic, No Other (no signs of injury) Eye(s): bilateral: Normal Inspection Oral Mucosa: Moist, Other (EtOH on breath) Neck: Normal ROM, Supple Cardiovascular: Rhythm Regular Respiratory: Normal Breath Sounds, No Rales, No Rhonchi, No Wheezing Gastrointestinal/Abdominal: Soft, No Tenderness Extremity: Bilateral: Atraumatic, Normal ROM Neurological/Psych: Other (arousable to deep sternal rub) ED Course And Treatment - Laboratory Results Result Diagrams: 04/16/18 17:00 04/16/18 17:00 Lab Interpretation: Abnormal (etoh 458H) O2 Sat by Pulse Oximetry: 99 Pulse Ox Interpretation: Normal Medical Decision Making Medical Decision Making: alcohol abuse Disposition Doctor Will See Patient In The: Office Counseled Patient/Family Regarding: Studies Performed, Diagnosis - Disposition Disposition: HOME/ ROUTINE Disposition Time: 21:40 Condition: GOOD Forms: [facility] (Iranian) - Clinical Impression Clinical Impression: Alcohol abuse with intoxication - Scribe Statement The provider has reviewed the documentation as recorded by the Scribe Sudha Shaw All medical record entries made by the Scribe were at my direction and personally dictated by me. I have reviewed the chart and agree that the record accurately reflects my personal performance of the history, physical exam, medical decision making, and the department course for this patient. I have also personally directed, reviewed, and agree with the discharge instructions and disposition.
[2018-04-16 17:03] LABS: BASO # 0.1 K/uL (0.0-0.2); BASO % 2.2 % (0.0-2.0); EOS # 0.3 K/uL (0.0-0.7); EOS % 4.3 % (0.0-4.0); HEMOGLOBIN 12.1 g/dL (12.0-18.0); LYMPH # 2.2 K/uL (1.0-4.3); LYMPH % 38.2 % (20.0-40.0); MEAN CORPUSCULAR HEMOGLOBIN 34.7 pg (27.0-31.0); MEAN CORPUSCULAR HGB CONC 34.7 g/dL (33.0-37.0); MEAN PLATELET VOLUME 6.7 fL (7.2-11.7); MONO # 0.7 K/uL (0.0-0.8); MONO % 11.5 % (0.0-10.0); NEUT # 2.6 K/uL (1.8-7.0); NEUT % 43.8 % (50.0-75.0); RBC 3.5 Mil/uL (4.40-5.90); RED CELL DISTRIBUTION WIDTH 15.6 % (11.5-14.5); WHITE BLOOD COUNT 5.9 K/uL (4.8-10.8)
[2018-04-16 17:16] LABS: ALB/GLOB RATIO 1.2 (1.0-2.1); ALBUMIN 3.8 g/dL (3.5-5.0); ALT/SGPT 38 U/L (21-72); AST/SGOT 83 U/L (17-59); BLOOD UREA NITROGEN 14 mg/dL (9-20); CALCIUM 8.7 mg/dl (8.6-10.4); GFR AFRICAN-AMERICAN > 60; GFR NON-AFRICAN AMERICAN > 60
[2018-04-16 23:33] VITALS: BP 115/74; PULSE 86; RESP 20; TEMP 97.3; O2SAT 98
== END 2018-04-16 22:45 | disposition home or self-care (01) ==
LOC: C.ER 15:05
DX: F10.129 Alcohol abuse with intoxication, unspecified (principal); I10 Essential (primary) hypertension; Z72.0 Tobacco use
CPT/HCPCS: 80053; 82948; 85025; 99285; G0480

== ENCOUNTER 2018-04-20 23:37 | Emergency (ER) | payer MEDICARE, OTHER ==
[2018-04-20 23:38] VITALS: BMI 24.0
[2018-04-20 23:53] VITALS: TEMP 97.5; O2SAT 97
--- NOTE | 2018-04-21 01:09 | C.PDOC ---
History Of Present Illness Patient is a 68 y/o male who presents to the ED with a complaint of acute EtOH intoxication. Patient was found in street with staggering gait. AOB noted. Patient denies any physical complaints at this time. Time Seen by Provider: 04/21/18 00:28 Chief Complaint (Nursing): Substance Abuse History Per: Patient History/Exam Limitations: no limitations Onset/Duration Of Symptoms: Hrs Current Symptoms Are (Timing): Still Present Suicide/Self Injury Attempted (Context): None Modifying Factor(s): Alcohol Recent travel outside of the [place]: No Past Medical History Reviewed: Historical Data, Nursing Documentation, Vital Signs Vital Signs: Last Vital Signs Temp 97.5 F L 04/20/18 23:45 Pulse 87 04/20/18 23:45 Resp 16 04/20/18 23:45 BP 115/72 04/20/18 23:45 Pulse Ox 97 04/21/18 01:10 - Medical History PMH: Gall Bladder Disease, HTN Surgical History: Cholecystectomy Family History: States: No Known Family Hx - Social History Hx Tobacco Use: Yes Hx Alcohol Use: Yes Hx Substance Use: No - Immunization History Hx Tetanus Toxoid Vaccination: No Hx Influenza Vaccination: No Hx Pneumococcal Vaccination: No Review Of Systems Except As Marked, All Systems Reviewed And Found Negative. Constitutional: Negative for: Fever, Chills Neurological: Positive for: Other (acute EtOH intoxication) Physical Exam - Physical Exam Additional Physical Exam Comments: Constitutional: No acute distress. Head: Normocephalic. Atraumatic. Eyes: PERRL. ENT: Moist mucous membranes. Neck: Supple. Cardiovascular: Regular rate. Radial pulse 2+ bilaterally. Chest: No tenderness. Respiratory: Clear to auscultation bilaterally. GI: Soft. Nontender. Nondistended. Back: No CVA tenderness. Musculoskeletal: No tenderness or swelling of extremities. Skin: No rash. Neurologic: Alert, no focal deficit. ED Course And Treatment O2 Sat by Pulse Oximetry: 97 Progress Note: Patient to be discharged in morning upon sobriety. Medical Decision Making Medical Decision Making: Patient awake, alert, steady gait. Disposition - Disposition Disposition: HOME/ ROUTINE Disposition Time: 04:22 Condition: STABLE Instructions: Alcohol Abuse and Alcoholism (DC) Forms: [facility] (Northern Irish) - Clinical Impression Clinical Impression: Alcohol intoxication - Scribe Statement The provider has reviewed the documentation as recorded by the Scribe Charo Strong All medical record entries made by the Mary Jo were at my direction and personally dictated by me. I have reviewed the chart and agree that the record accurately reflects my personal performance of the history, physical exam, medical decision making, and the department course for this patient. I have also personally directed, reviewed, and agree with the discharge instructions and disposition.
[2018-04-21 04:52] VITALS: BP 110/70; PULSE 80; RESP 14
== END 2018-04-21 04:54 | disposition home or self-care (01) ==
LOC: C.ER 23:37
DX: F10.129 Alcohol abuse with intoxication, unspecified (principal); Y90.9 Presence of alcohol in blood, level not specified

== ENCOUNTER 2018-06-16 20:17 | Emergency (ER) | payer OTHER ==
[2018-06-16 20:17] VITALS: BMI 24.0
--- NOTE | 2018-06-16 20:49 | C.PDOC ---
History Of Present Illness 68 year old male known local homeless alcoholic brought in by EMS for public intoxication. Denies physical complaints at this time. Time Seen by Provider: 06/16/18 20:47 History Per: Patient History/Exam Limitations: no limitations Onset/Duration Of Symptoms: Hrs Current Symptoms Are (Timing): Still Present Suicide/Self Injury Attempted (Context): None Modifying Factor(s): Alcohol Associated Symptoms: denies: Depression, Suicidal Thoughts Involuntary Hold By: None Recent travel outside of the [place]: No Past Medical History Reviewed: Historical Data, Nursing Documentation, Vital Signs Vital Signs: Last Vital Signs Temp 97.6 F 06/16/18 20:54 Pulse 89 06/16/18 20:54 Resp 20 06/16/18 20:54 BP 144/76 06/16/18 20:54 Pulse Ox 94 L 06/16/18 20:54 - Medical History PMH: Gall Bladder Disease, HTN Surgical History: Cholecystectomy Family History: States: Unknown Family Hx - Social History Hx Tobacco Use: Yes Hx Alcohol Use: Yes Hx Substance Use: No - Immunization History Hx Tetanus Toxoid Vaccination: No Hx Influenza Vaccination: No Hx Pneumococcal Vaccination: No Review Of Systems Constitutional: Negative for: Fever, Chills Cardiovascular: Negative for: Chest Pain, Palpitations Respiratory: Negative for: Cough, Shortness of Breath Gastrointestinal: Negative for: Nausea, Vomiting Physical Exam - Physical Exam Appears: Non-toxic, Other (No injuries, disheveled, foul smelling, covered in stool) Skin: Normal Color, Warm, Dry Head: Atraumatic, Normacephalic Eye(s): bilateral: Normal Inspection Oral Mucosa: Moist Chest: Symmetrical, No Tenderness Cardiovascular: Rhythm Regular Respiratory: Normal Breath Sounds, No Rales, No Rhonchi, No Wheezing Gastrointestinal/Abdominal: Soft, No Tenderness Extremity: Normal ROM (x4) Neurological/Psych: Oriented x3, Normal Speech Gait: Steady Medical Decision Making Medical Decision Making: typical alcohol/homeless/malingering no new issues unstable gait observe until clinically sober. Disposition Doctor Will See Patient In The: Office Counseled Patient/Family Regarding: Studies Performed, Diagnosis - Disposition Referrals: Alcoholics Anonymous [Outside] [facility] [Outside] [place] [facility] [Outside] [facility] [Outside] [facility] [Outside] Disposition: HOME/ ROUTINE Disposition Time: 06:00 Condition: GOOD Instructions: Alcohol Abuse and Alcoholism (DC) - Clinical Impression Clinical Impression: Homeless, Alcohol abuse - Scribe Statement The provider has reviewed the documentation as recorded by the Scribmilvia Gomez All medical record entries made by the Scribe were at my direction and personally dictated by me. I have reviewed the chart and agree that the record accurately reflects my personal performance of the history, physical exam, medical decision making, and the department course for this patient. I have also personally directed, reviewed, and agree with the discharge instructions and disposition.
[2018-06-16 20:56] VITALS: BP 144/76; PULSE 89; RESP 20; TEMP 97.6; O2SAT 94
== END 2018-06-17 05:16 | disposition home or self-care (01) ==
LOC: C.ER 20:17
DX: F10.10 Alcohol abuse, uncomplicated (principal); Z59.0 Homelessness

== ENCOUNTER 2018-10-14 17:38 | Emergency (ER) | payer MEDICARE, OTHER ==
[2018-10-14 17:58] VITALS: BMI 27.4
--- NOTE | 2018-10-14 18:32 | C.PDOC ---
History Of Present Illness 68 year old male presents to the emergency department by ambulance from a homeless intermediate. As per intermediate, patient was too intoxicated to stay, so the ambulance was called. Patient is heavily intoxicated and cannot provide a history. Time Seen by Provider: 10/14/18 17:51 Chief Complaint (Nursing): Substance Abuse History Per: Patient History/Exam Limitations: intoxication Onset/Duration Of Symptoms: Hrs Current Symptoms Are (Timing): Still Present Suicide/Self Injury Attempted (Context): None Modifying Factor(s): Alcohol Past Medical History Reviewed: Historical Data, Nursing Documentation, Vital Signs Vital Signs: Last Vital Signs Temp 97.8 F 10/14/18 17:52 Pulse 92 H 10/14/18 17:52 Resp 18 10/14/18 17:52 BP 104/51 L 10/14/18 17:52 Pulse Ox 96 10/14/18 17:52 - Medical History PMH: Depression, Diabetes, Emphysema, Gall Bladder Disease, HTN Denies: Hepatitis, Chronic Kidney Disease Comment Only: HIV (unable to assess), Seizures (unable to assess), Sexually Transmitted Disease (unable to assess) Surgical History: Cholecystectomy - [facility] Procedures GROUP PSYCHOTHERAPY (07/29/18) INDIV PSYCHOTHERAPY FOR SUBSTANCE ABUSE, PSYCHOEDUCATION (07/29/18) Family History: States: Unknown Family Hx - Social History Hx Tobacco Use: Yes Hx Alcohol Use: Yes Hx Substance Use: Yes (Alcohol) - Immunization History Hx Tetanus Toxoid Vaccination: No Hx Influenza Vaccination: No Hx Pneumococcal Vaccination: No Review Of Systems Review Of Systems: ROS cannot be obtained secondary to pt's inabilty to answer questions. Physical Exam - Physical Exam Appears: Unkempt, Other (unkempt, poor-hygiene, heavily intoxicated. No sign of injury. Speaking incoherently. ) Skin: Warm, Dry Head: Atraumatic, Normacephalic Eye(s): bilateral: Normal Inspection, PERRL, EOMI Neck: Normal, Supple Chest: Symmetrical, No Tenderness Cardiovascular: Rhythm Regular, No Murmur Respiratory: No Rales, No Rhonchi, No Wheezing Gastrointestinal/Abdominal: Soft, No Tenderness, No Guarding, No Rebound Extremity: Normal ROM Extremity: Bilateral: Atraumatic Neurological/Psych: No Oriented x3, No Normal Speech, Other (intoxicated) ED Course And Treatment O2 Sat by Pulse Oximetry: 96 (RA) Pulse Ox Interpretation: Normal Disposition - Disposition Disposition Time: 18:57 Condition: GUARDED Forms: [facility] (Tuvaluan) - Clinical Impression Clinical Impression: Alcohol abuse with intoxication - Scribe Statement The provider has reviewed the documentation as recorded by the Scribe (Ran Bruno) Provider Attestation: All medical record entries made by the Scribe were at my direction and personally dictated by me. I have reviewed the chart and agree that the record accurately reflects my personal performance of the history, physical exam, medical decision making, and the department course for this patient. I have also personally directed, reviewed, and agree with the discharge instructions and disposition. Physician Patient Turnover Patient Signed Over To: Sean Mcdowell Handoff Comments: pending sobriety
[2018-10-15 03:21] VITALS: RESP 16; O2SAT 94
[2018-10-15 05:59] VITALS: BP 110/64; PULSE 74; TEMP 97.6
== END 2018-10-15 05:59 | disposition home or self-care (01) ==
LOC: C.ER 17:38
DX: F10.129 Alcohol abuse with intoxication, unspecified (principal); Y90.9 Presence of alcohol in blood, level not specified

== ENCOUNTER 2018-10-28 22:47 | Emergency (ER) | payer MEDICARE, OTHER ==
[2018-10-28 22:49] VITALS: BMI 24.0
--- NOTE | 2018-10-28 23:06 | C.PDOC ---
History Of Present Illness 68 year old male is brought to the ED by ambulance for evaluation of public alcohol intoxication after he was found sleeping in [facility] prior to arrival. Patient noted to have a splint on his left arm. Review of prior records shows that patient was evaluated in [facility] ED yesterday for complaints of left wrist pain. 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 Patient admits to drinking earlier today and has no other complaints at this time. Time Seen by Provider: 10/28/18 22:53 Chief Complaint (Nursing): Substance Abuse History Per: Patient, EMS History/Exam Limitations: intoxication Onset/Duration Of Symptoms: Hrs Current Symptoms Are (Timing): Still Present Suicide/Self Injury Attempted (Context): None Modifying Factor(s): Alcohol Associated Symptoms: denies: Suicidal Thoughts, Suicidal Plan Involuntary Hold By: None Recent travel outside of the [place]: No Additional History Per: Patient, EMS Past Medical History Reviewed: Historical Data, Nursing Documentation, Vital Signs - Medical History PMH: Depression, Diabetes, Emphysema, Gall Bladder Disease, HTN Denies: Hepatitis, Chronic Kidney Disease Comment Only: HIV (unable to assess), Seizures (unable to assess), Sexually Transmitted Disease (unable to assess) Surgical History: Cholecystectomy - [facility] Procedures GROUP PSYCHOTHERAPY (07/29/18) INDIV PSYCHOTHERAPY FOR SUBSTANCE ABUSE, PSYCHOEDUCATION (07/29/18) Family History: States: Unknown Family Hx - Social History Hx Tobacco Use: Yes Hx Alcohol Use: Yes Hx Substance Use: Yes (Alcohol) - Immunization History Hx Tetanus Toxoid Vaccination: No Hx Influenza Vaccination: No Hx Pneumococcal Vaccination: No Review Of Systems Psych: Positive for: Other (EtOH intoxication ). Negative for: Suicidal ideation Physical Exam - Physical Exam Appears: Non-toxic, No Acute Distress, Other (visibly intoxicated ) Skin: Normal Color, Warm, Dry Head: Atraumatic, Normacephalic Eye(s): bilateral: Normal Inspection Oral Mucosa: Moist, Other (alcohol on breath ) Neck: Supple Chest: Symmetrical, No Deformity Cardiovascular: Rhythm Regular Respiratory: No Accessory Muscle Use Extremity: No Tenderness, Capillary Refill (less than 2 seconds ), No Swelling, Other (left thumb spica splint removed. chronic prominence of the ulnar styloid process noted. no ecchymosis, erythema) Neurological/Psych: Other (arousable to touch and verbal stimuli ) Disposition - Disposition Disposition Time: 23:45 Condition: STABLE Forms: [facility] (Kazakh) - Clinical Impression Clinical Impression: Homeless, Alcohol abuse with intoxication - Scribe Statement The provider has reviewed the documentation as recorded by the Scribe (Theresa Shaw) Provider Attestation: All medical record entries made by the Scribe were at my direction and personally dictated by me. I have reviewed the chart and agree that the record accurately reflects my personal performance of the history, physical exam, medical decision making, and the department course for this patient. I have also personally directed, reviewed, and agree with the discharge instructions and disposition. Physician Patient Turnover Patient Signed Over To: Arelis Funes Handoff Comments: pending sobriety
[2018-10-29 05:49] VITALS: BP 121/65; PULSE 82; TEMP 98.2; O2SAT 97
== END 2018-10-29 06:23 | disposition home or self-care (01) ==
LOC: C.ER 22:47
DX: F10.129 Alcohol abuse with intoxication, unspecified (principal); Z59.0 Homelessness; E11.9 Type 2 diabetes mellitus without complications

== ENCOUNTER 2018-10-31 21:48 | Emergency (ER) | payer MEDICARE ==
[2018-10-31 21:48] VITALS: BMI 24.0
[2018-10-31 22:17] VITALS: RESP 20
--- NOTE | 2018-10-31 22:46 | C.PDOC ---
History Of Present Illness 68 year old man well known to the ER for ETOH intoxication and abuse, brought in for back pain and unsteady gait. Patient admits he was at another hospital as well as this hospital over the last 48 hours. Patient states the pain started week ago. Denies recent fall, numbness, weakness, bladder/bowel incontinence or retention, or abdominal pain. He also reports he is hungry and would like something to eat. PMD: none <Ita Garcia - Last Filed: 11/01/18 00:41> History Per: Patient, EMS History/Exam Limitations: no limitations Onset/Duration Of Symptoms: Days Current Symptoms Are (Timing): Still Present Recent travel outside of the [place]: No <Ita Garcia - Last Filed: 11/01/18 00:41> <Daniel Orlando - Last Filed: 11/01/18 04:59> Time Seen by Provider: 10/31/18 22:02 Chief Complaint (Nursing): Back Pain Past Medical History Reviewed: Historical Data, Nursing Documentation, Vital Signs Vital Signs: Last Vital Signs Temp 97.8 F 10/31/18 21:52 Pulse 80 10/31/18 21:52 Resp 20 10/31/18 21:52 BP 117/64 10/31/18 21:52 Pulse Ox 100 10/31/18 21:52 - Medical History PMH: Depression, Diabetes, Emphysema, Gall Bladder Disease, HTN Denies: Hepatitis, Chronic Kidney Disease Comment Only: HIV (unable to assess), Seizures (unable to assess), Sexually Transmitted Disease (unable to assess) Surgical History: Cholecystectomy - [facility] Procedures GROUP PSYCHOTHERAPY (07/29/18) INDIV PSYCHOTHERAPY FOR SUBSTANCE ABUSE, PSYCHOEDUCATION (07/29/18) Family History: States: Unknown Family Hx - Social History Hx Tobacco Use: Yes Hx Alcohol Use: Yes Hx Substance Use: Yes (Alcohol) - Immunization History Hx Tetanus Toxoid Vaccination: No Hx Influenza Vaccination: No Hx Pneumococcal Vaccination: No <Ita Garcia - Last Filed: 11/01/18 00:41> Vital Signs: Last Vital Signs Temp 97.8 F 10/31/18 21:52 Pulse 80 10/31/18 21:52 Resp 20 10/31/18 21:52 BP 117/64 10/31/18 21:52 Pulse Ox 100 11/01/18 00:42 - [facility] GROUP PSYCHOTHERAPY (07/29/18) INDIV PSYCHOTHERAPY FOR SUBSTANCE ABUSE, PSYCHOEDUCATION (07/29/18) <Daniel Orlando - Last Filed: 11/01/18 04:59> Review Of Systems Except As Marked, All Systems Reviewed And Found Negative. Musculoskeletal: Positive for: Back Pain Neurological: Positive for: Other (Unsteady gait) <Ita Garcia - Last Filed: 11/01/18 00:41> Physical Exam - Physical Exam Appears: No Acute Distress, Other (Somewhat disheveled) Skin: Warm, Dry Head: Normacephalic, Tenderness Cardiovascular: Rhythm Regular, No Murmur Respiratory: Normal Breath Sounds, No Accessory Muscle Use Gastrointestinal/Abdominal: Soft, No Tenderness Back: Paraspinal Tenderness (Mild diffuse lumbar), Straight Leg Raising (Negative), Other (No crepitus or step off deformity) Extremity: Normal ROM, No Deformity Neurological/Psych: Normal Motor, Normal Sensation, Other (5/5 strength and sensation to bilateral lower extremities) <Ita Garcia - Last Filed: 11/01/18 00:41> ED Course And Treatment O2 Sat by Pulse Oximetry: 100 (Room air) Pulse Ox Interpretation: Normal <Ita Garcia - Last Filed: 11/01/18 00:41> Pulse Ox Interpretation: Normal Reevaluation Time: 04:52 Reassessment Condition: Improved <Daniel Orlando - Last Filed: 11/01/18 04:59> Medical Decision Making Medical Decision Making: Impression: Atraumatic back pain and ETOH. <Ita Garcia - Last Filed: 11/01/18 00:41> Disposition Counseled Patient/Family Regarding: Studies Performed, Diagnosis - Disposition Disposition Time: 00:00 <Ita Garcia - Last Filed: 11/01/18 00:41> Counseled Patient/Family Regarding: Studies Performed, Diagnosis, Need For F ollowup <Daniel Orlando - Last Filed: 11/01/18 04:59> - Disposition Referrals: [facility] [Outside] Disposition: HOME/ ROUTINE Condition: STABLE Instructions: Alcohol Use - When Is Drinking a Problem?, Low Back Pain (DC) Print Language: JAPANESE - Clinical Impression Clinical Impression: Low back pain, Alcohol abuse with uncomplicated intoxication - Scribe Statement The provider has reviewed the documentation as recorded by the Scribe Tank Gomez All medical record entries made by the Scribe were at my direction and personally dictated by me. I have reviewed the chart and agree that the record accurately reflects my personal performance of the history, physical exam, medical decision making, and the department course for this patient. I have also personally directed, reviewed, and agree with the discharge instructions and disposition. <Ita Garcia - Last Filed: 11/01/18 00:41>
[2018-11-01 06:26] VITALS: BP 121/74; PULSE 88; TEMP 97.5; O2SAT 96
== END 2018-11-01 06:10 | disposition home or self-care (01) ==
LOC: C.ER 21:48
DX: M54.5 Low back pain (principal); F10.129 Alcohol abuse with intoxication, unspecified; E11.9 Type 2 diabetes mellitus without complications

== ENCOUNTER 2018-11-11 21:57 | Emergency (ER) | payer MEDICARE ==
[2018-11-11 21:57] VITALS: BMI 24.0
--- NOTE | 2018-11-11 23:58 | C.PDOC ---
History Of Present Illness 68 y/o male BIBA for alcohol intoxication, was apparently found in the street appearing intoxicated and with unsteady gait. He admits to drinking alcohol today. Time Seen by Provider: 11/11/18 22:10 Chief Complaint (Nursing): Substance Abuse History Per: EMS History/Exam Limitations: no limitations Onset/Duration Of Symptoms: Hrs Current Symptoms Are (Timing): Still Present Modifying Factor(s): Alcohol Severity: Moderate Involuntary Hold By: Emergency Physician Past Medical History Reviewed: Historical Data, Nursing Documentation, Vital Signs Vital Signs: Last Vital Signs Temp 98.4 F 11/11/18 22:03 Pulse 90 11/11/18 22:03 Resp 20 11/11/18 22:03 BP 96/60 L 11/11/18 22:03 Pulse Ox 95 11/11/18 22:03 - Medical History PMH: Depression, Diabetes, Emphysema, Gall Bladder Disease, HTN Comment Only: HIV (unable to assess), Seizures (unable to assess), Sexually Transmitted Disease (unable to assess) Surgical History: Cholecystectomy - [facility] Procedures GROUP PSYCHOTHERAPY (07/29/18) INDIV PSYCHOTHERAPY FOR SUBSTANCE ABUSE, PSYCHOEDUCATION (07/29/18) Family History: States: No Known Family Hx - Social History Hx Tobacco Use: Yes Hx Alcohol Use: Yes Hx Substance Use: Yes (Alcohol) - Immunization History Hx Tetanus Toxoid Vaccination: No Hx Influenza Vaccination: No Hx Pneumococcal Vaccination: No Review Of Systems Constitutional: Negative for: Fever Cardiovascular: Negative for: Chest Pain Respiratory: Negative for: Shortness of Breath Gastrointestinal: Negative for: Vomiting Skin: Negative for: Rash Psych: Positive for: Other (Alcohol intoxication) Physical Exam - Physical Exam Appears: Well, Non-toxic, No Acute Distress, Other (appears intoxicated ) Skin: Warm, Dry Head: Atraumatic, Normacephalic Eye(s): bilateral: Normal Inspection Oral Mucosa: Moist Neck: Normal, Normal ROM, No Midline Cervical Tenderness, No Paracervical Tenderness, No Step Off Deformity, Supple Cardiovascular: Rhythm Regular Respiratory: Normal Breath Sounds, No Rales, No Rhonchi, No Wheezing Gastrointestinal/Abdominal: Normal Exam, Bowel Sounds, Soft, No Tenderness Extremity: Bilateral: Atraumatic, Normal Color And Temperature, Normal ROM Neurological/Psych: Other (intoxicated but awake & alert, moving all 4 extremities spontaneously ) ED Course And Treatment O2 Sat by Pulse Oximetry: 95 (RA) Pulse Ox Interpretation: Normal Progress Note: Accucheck 94 - WNL. Patient pending sobriety. Reevaluation Time: 05:30 Reassessment Condition: Improved (On reassessment, patient is AAOx3, ambulating normally in the ED. He is clinically sober, will discharge.) Disposition Counseled Patient/Family Regarding: Diagnosis, Need For Followup - Disposition Referrals: [facility] [Outside] Disposition: HOME/ ROUTINE Disposition Time: 05:25 Condition: STABLE Instructions: Alcohol Abuse and Alcoholism (DC) Forms: [facility] (Senegalese) - Clinical Impression Clinical Impression: Alcohol intoxication - Scribe Statement The provider has reviewed the documentation as recorded by the Mary Jo Howard Provider Attestation: All medical record entries made by the Anne-Marieibmilvia were at my direction and personally dictated by me. I have reviewed the chart and agree that the record accurately reflects my personal performance of the history, physical exam, medical decision making, and the department course for this patient. I have also personally directed, reviewed, and agree with the discharge instructions and disposition.
[2018-11-12 05:39] VITALS: BP 110/72; PULSE 82; RESP 16; TEMP 98.1
[2018-11-18 15:39] VITALS: O2SAT 95
== END 2018-11-12 05:39 | disposition home or self-care (01) ==
LOC: C.ER 21:57
DX: F10.129 Alcohol abuse with intoxication, unspecified (principal); E11.9 Type 2 diabetes mellitus without complications

== ENCOUNTER 2018-11-25 21:42 | Emergency (ER) | payer MEDICARE ==
[2018-11-25 21:42] VITALS: BMI 24.0
--- NOTE | 2018-11-25 22:13 | C.PDOC ---
History Of Present Illness 68 year old male is brought to the ED by EMS for alcohol intoxication. Patient admits to drinking alcohol today. Patient denies SI/HI, hallucinations, injury, fall, trauma, CP, SOB. Time Seen by Provider: 11/25/18 22:12 Chief Complaint (Nursing): Substance Abuse History Per: Patient, EMS History/Exam Limitations: intoxication Onset/Duration Of Symptoms: Hrs Current Symptoms Are (Timing): Still Present Suicide/Self Injury Attempted (Context): None Modifying Factor(s): Alcohol Associated Symptoms: denies: Depression, Suicidal Thoughts, Suicidal Plan Recent travel outside of the [place]: No Additional History Per: Patient, EMS Past Medical History Reviewed: Historical Data, Nursing Documentation, Vital Signs Vital Signs: Last Vital Signs Temp 97.9 F 11/25/18 21:44 Pulse 85 11/25/18 21:44 Resp 16 11/25/18 21:44 BP 103/69 11/25/18 21:44 Pulse Ox 97 11/25/18 21:44 - Medical History PMH: Depression, Diabetes, Emphysema, Gall Bladder Disease, HTN Denies: Hepatitis, Chronic Kidney Disease Comment Only: HIV (unable to assess), Seizures (unable to assess), Sexually Transmitted Disease (unable to assess) Surgical History: Cholecystectomy - [facility] Procedures GROUP PSYCHOTHERAPY (07/29/18) INDIV PSYCHOTHERAPY FOR SUBSTANCE ABUSE, PSYCHOEDUCATION (07/29/18) Family History: States: Unknown Family Hx - Social History Hx Tobacco Use: Yes Hx Alcohol Use: Yes Hx Substance Use: Yes (Alcohol) - Immunization History Hx Tetanus Toxoid Vaccination: No Hx Influenza Vaccination: No Hx Pneumococcal Vaccination: No Review Of Systems Constitutional: Negative for: Fever, Chills Cardiovascular: Negative for: Chest Pain, Palpitations Respiratory: Negative for: Shortness of Breath Gastrointestinal: Negative for: Nausea, Vomiting, Abdominal Pain Skin: Negative for: Rash Neurological: Negative for: Weakness, Numbness Psych: Negative for: Depression, Suicidal ideation Physical Exam - Physical Exam Appears: Non-toxic, No Acute Distress, Other (no signs of trauma) Skin: Warm, Dry Head: Normacephalic Eye(s): bilateral: Normal Inspection Neck: Supple Chest: Symmetrical Cardiovascular: Rhythm Regular Respiratory: No Rales, No Rhonchi, No Wheezing Gastrointestinal/Abdominal: Soft, No Tenderness, No Guarding, No Rebound Extremity: Bilateral: Atraumatic, Normal Color And Temperature, Normal ROM Neurological/Psych: Oriented x3, Normal Speech, Normal Cognition Gait: Steady ED Course And Treatment O2 Sat by Pulse Oximetry: 97 (ON RA) Pulse Ox Interpretation: Normal Reevaluation Time: 05:28 Reassessment Condition: Improved Disposition Counseled Patient/Family Regarding: Studies Performed, Diagnosis, Need For Followup - Disposition Referrals: [facility] [Outside] Disposition: HOME/ ROUTINE Disposition Time: 22:13 Condition: FAIR Instructions: Alcohol Abuse and Alcoholism (DC) Forms: [employer] [facility] (Qatari) - Clinical Impression Clinical Impression: Alcohol abuse with intoxication - Scribe Statement The provider has reviewed the documentation as recorded by the Scribe Johan Montgomery All medical record entries made by the Scribe were at my direction and personally dictated by me. I have reviewed the chart and agree that the record accurately reflects my personal performance of the history, physical exam, medical decision making, and the department course for this patient. I have also personally directed, reviewed, and agree with the discharge instructions and disposition.
[2018-11-26 04:48] VITALS: BP 97/67; PULSE 66; RESP 16; TEMP 97.6
[2018-11-26 05:29] VITALS: O2SAT 97
== END 2018-11-26 05:47 | disposition home or self-care (01) ==
LOC: C.ER 21:42
DX: F10.129 Alcohol abuse with intoxication, unspecified (principal); Y90.9 Presence of alcohol in blood, level not specified

== ENCOUNTER 2018-12-25 01:12 | Emergency (ER) | payer MEDICARE ==
[2018-12-25 01:12] VITALS: BMI 24.0
[2018-12-25 01:32] VITALS: TEMP 98.4
--- NOTE | 2018-12-25 02:07 | C.PDOC ---
History Of Present Illness 68 year old homeless male with a past medical history of chronic right leg pain, diabetes, HTN, substance and alcohol abuse presents to the emergency department evaluation after a fall that occurred prior to arrival. Patient states he went to use the bathroom when he slipped on water and fell on his right leg hitting his head against a plant in the corner. Patient was able to stand without assistance and asked a nearby person for a cigarette that he states made him dizzy. Patient admits to episodes of lightheadedness over the last few weeks without a known cause. Denies drinking alcohol or substance use today. States he is here because he does not want to stay at the custodial. Of note patient is attending physical therapy for his chronic right leg pain. Denies fevers, chills, headache, vision changes, weakness, numbness, paresthesia, chest pain, shortness of breath, neck pain, back pain, urinary symptoms, or any other as sociated complaints. Time Seen by Provider: 12/25/18 01:47 Chief Complaint (Nursing): Lower Extremity Problem/Injury Past Medical History Vital Signs: Last Vital Signs Temp 98.4 F 12/25/18 01:24 Pulse 69 12/25/18 01:24 Resp 18 12/25/18 01:24 BP 166/73 H 12/25/18 01:24 Pulse Ox 18 L 12/25/18 01:24 - Medical History PMH: Depression, Diabetes, Emphysema, Gall Bladder Disease, HTN Denies: Hepatitis, Chronic Kidney Disease Comment Only: HIV (unable to assess), Seizures (unable to assess), Sexually Transmitted Disease (unable to assess) Surgical History: Cholecystectomy - [facility] GROUP PSYCHOTHERAPY (07/29/18) INDIV PSYCHOTHERAPY FOR SUBSTANCE ABUSE, PSYCHOEDUCATION (07/29/18) Family History: States: Unknown Family Hx - Social History Hx Tobacco Use: Yes Hx Alcohol Use: Yes Hx Substance Use: Yes (Alcohol) - Immunization History Hx Tetanus Toxoid Vaccination: No Hx Influenza Vaccination: No Hx Pneumococcal Vaccination: No Physical Exam - Physical Exam Appears: No Acute Distress, Unkempt Skin: Normal Color, Warm, Dry Head: Atraumatic, Normacephalic Eye(s): bilateral: Normal Inspection, PERRL, EOMI Ear(s): Bilateral: Normal Nose: Normal Oral Mucosa: Moist Teeth: Edentulous Throat: Normal Neck: Normal, Normal ROM, No Midline Cervical Tenderness, No Paracervical Tenderness, No Step Off Deformity, Supple Cardiovascular: Rhythm Regular Respiratory: Decreased Breath Sounds (bilaterally) Gastrointestinal/Abdominal: Normal Exam, Soft, No Tenderness Back: Normal Inspection, No CVA Tenderness, No Vertebral Tenderness, No Paraspinal Tenderness Extremity: Normal ROM, Tenderness (right knee), Capillary Refill (<2s) Extremity: Left: Normal Color And Temperature, Normal ROM, Bilateral: Atraumati c, Other (mild pedal edema and redness bilaterally to lower extremities with pulses 2/2) Pulses: Left Radial: Normal, Right Radial: Normal, Left Dorsalis Pedis: Normal, Right Dorsalis Pedis: Normal Neurological/Psych: Oriented x3, Normal Speech, Normal Cranial Nerves, No Cerebellar Signs, Normal Motor, Normal Sensation Gait: Steady ED Course And Treatment - Laboratory Results Result Diagrams: 12/25/18 03:08 12/25/18 03:08 ECG: Viewed By [place] ECG Rhythm: Sinus Rhythm ECG Interpretation: No Acute Changes Interpretation Of ECG: Rate 64; NSR; Normal Intervals; No STEMI; No acute ischemic changes O2 Sat by Pulse Oximetry: 99 Pulse Ox Interpretation: Normal - Radiology CXR: Interpreted by [place] CXR Interpretation: Yes: No Acute Disease - CT Scan/US CT Head Other Rad Studies (CT/US): Read By Radiologist, Radiology Report Reviewed CT/US Interpretation: CT scan of the head. CLINICAL HISTORY: Headache. TECHNIQUE: Multiple axial CT images were obtained through the brain without IV contrast material. COMMENTS: There is normal configuration of sella turcica. There are no intra or extra-axial collections. There is no mass effect or midline shift. There is no evidence of hematoma formation. No hydrocephalus is present. The ventricles are symmetrical. No abnormal calcifications are present. There is diffuse age-appropriate cerebellar and cerebral atrophy with proportionally dilated ventricles and cortical sulci. There are bilateral periventricular and subcortical white matter hypolucencies compatible with mild chronic microvascular disease. Otherwise, no significant focal abnormalities are seen either in the posterior fossa or supratentorial compartment. IMPRESSION: 1. Age-appropriate cerebellar and cerebral atrophy. 2. Mild chronic microvascular disease. 3. No evidence of acute intracranial pathology. Thank you for your kind referral of this patient.CT scan of the head. CLINICAL HISTORY: Headache. TECHNIQUE: Multiple axial CT images were obtained through the brain without IV contrast material. COMMENTS: There is normal configura tion of sella turcica. There are no intra or extra-axial collections. There is no mass effect or midline shift. There is no evidence of hematoma formation. No hydrocephalus is present. The ventricles are symmetrical. No abnormal calcifications are present. There is diffuse age-appropriate cerebellar and cerebral atrophy with proportionally dilated ventricles and cortical sulci. There are bilateral periventricular and subcortical white matter hypolucencies compatible with mild chronic microvascular disease. Otherwise, no significant focal abnormalities are seen either in the posterior fossa or supratentorial compartment. IMPRESSION: 1. Age-appropriate cerebellar and cerebral atrophy. 2. Mild chronic microvascular disease. 3. No evidence of acute intracranial pathology. Thank you for your kind referral of this patient. Medical Decision Making Medical Decision Making: Initial Plan: * CBC, CMP * Troponin * Alcohol level * UDS * UA * EKG * CXR * Head CT * Right knee XR * Right Femur XR On initial examination, patient is unkempt and appears homeless. Neurological exam normal without focal deficits or ataxia. No facial droop. Patient's story is vague and inconsistent. Of note, patient is very uncooperative. States he is here because he does not want to sleep at the custodial. Will initiate syncope workup to ensure no acute underlying pathology. Labwork reviewed, unremarkable EKG shows NSR, no acute ischemic change; troponin negative UDS + for benzodiazepines UA negative Imaging reviewed, negative XRs (for acute fracture or dislocation) as read by me. Head CT negative for acute pathology as read by radiologist. C-spine imaging not indicated secondary to Nexus C-spine score of 0. [address] Pope, hospitalist, regarding possible admission for observation secondary to recent episodes of lightheadedness and possible syncope. He recommends assessing patient's gait with discharge home if no complaints of dizziness. Pt has been observed in ED for 5 hours without any acute events or complaints of dizziness. Pt sleeping soundly in stretcher for majority of visit. Case discussed with ED attending Dr. Mcdowell, who recommends discharge home. On gait assessment, patient able to ambulate with steady gait without assistance, no ataxia or complaints of dizziness. A&Ox3. Pt is agreeable to discharge home with followup. Pt advised to followup with orthopedics, neurology, and his PMD. Diagnostic testing results and plan of care discussed with patient. Strict instructions given regarding prescription use, importance of followup, and signs/symptoms to return to ER including worsening pain, syncope, or any other new/worsening symptoms. Pt verbalized understanding of discussion. Patient is A&Ox3, ambulating with steady gait, with vital signs stable for discharge. Disposition - Disposition Referrals: [facility] [Outside] Navi Cash MD [Staff Provider] - Disposition: HOME/ ROUTINE Disposition Time: 06:45 Condition: STABLE Additional Instructions: Aumentar los fluidos Ibuprofeno / tylenol para el dolor Continuar la terapia Seguimiento con neurologa en 2 garcia. Seguimiento con clnica dentro de 2 garcia. Regrese a la geneva de emergencias con cualquier sntoma nuevo o que empeore Prescriptions: Naproxen [Naprosyn] 500 mg PO DAILY PRN #14 tablet PRN Reason: Pain, Moderate (4-7) Instructions: Closed Head Injury (DC), Chronic Pain Forms: Gen Discharge Inst Bangladeshi, [employer] (Bangladeshi), Work Excuse - Clinical Impression Clinical Impression: Homeless, Head injury, closed, Chronic leg pain
[2018-12-25 03:12] LABS: BASO # 0.1 K/uL (0.0-0.2); BASO % 1.2 % (0.0-2.0); EOS # 1.6 K/uL (0.0-0.7); EOS % 17.1 % (0.0-4.0); HEMOGLOBIN 11.6 g/dL (12.0-18.0); LYMPH # 2.5 K/uL (1.0-4.3); LYMPH % 26.9 % (20.0-40.0); MEAN CELL VOLUME 95.8 fL (80.0-94.0); MEAN CORPUSCULAR HEMOGLOBIN 31.3 pg (27.0-31.0); MEAN CORPUSCULAR HGB CONC 32.7 g/dL (33.0-37.0); MEAN PLATELET VOLUME 7.6 fL (7.2-11.7); MONO % 10.9 % (0.0-10.0); NEUT # 4.1 K/uL (1.8-7.0); NEUT % 43.9 % (50.0-75.0); NRBC % 0.1 % (0.0-2.0); RBC 3.69 Mil/uL (4.40-5.90); RED CELL DISTRIBUTION WIDTH 14.5 % (11.5-14.5); WHITE BLOOD COUNT 9.4 K/uL (4.8-10.8)
[2018-12-25 03:29] LABS: ALB/GLOB RATIO 1.3 (1.0-2.1); ALBUMIN 3.7 g/dL (3.5-5.0); ALT/SGPT 37 U/L (21-72); AST/SGOT 31 U/L (17-59); BLOOD UREA NITROGEN 16 mg/dL (9-20); CALCIUM 9.1 mg/dl (8.6-10.4); GFR NON-AFRICAN AMERICAN > 60
[2018-12-25 05:30] VITALS: BP 140/70; PULSE 70; RESP 14
[2018-12-25 06:06] LABS: BARBITURATES, UR NEGATIVE (NEGATIVE); OPIATES, UR NEGATIVE (NEGATIVE); PHENCYCLIDINE, UR NEGATIVE (NEGATIVE)
[2018-12-25 06:15] LABS: URINE BILIRUBIN NEGATIVE (NEGATIVE); URINE BLOOD NEGATIVE (NEGATIVE); URINE CLARITY Clear (Clear); URINE COLOR Straw (YELLOW); URINE GLUCOSE (UA) NORMAL (Normal); URINE LEUKOCYTE ESTERASE NEG Leu/uL (Negative); URINE PROTEIN NEGATIVE (NEGATIVE); URINE UROBILINOGEN NORMAL mg/dL (0.2-1.0)
[2018-12-25 06:18] LABS: BENZODIAZEPINES, UR POSITIVE (NEGATIVE)
--- NOTE | 2018-12-25 08:40 | CT ---
Date of service: 12/25/2018 PROCEDURE: CT HEAD WITHOUT CONTRAST. HISTORY: headache COMPARISON: None available. TECHNIQUE: Axial computed tomography images were obtained through the head/brain without intravenous contrast. Radiation dose: Total exam DLP = 987.61 mGy-cm. This CT exam was performed using one or more of the following dose reduction techniques: Automated exposure control, adjustment of the mA and/or kV according to patient size, and/or use of iterative reconstruction technique. FINDINGS: HEMORRHAGE: No intracranial hemorrhage. BRAIN: No mass effect or edema. Scattered focal lucencies in the subcortical and periventricular white matter suggestive for chronic microvascular ischemic change. Prominent bilateral basal ganglia lacunar infarcts. Diffuse generalized parenchymal atrophy. Confluent low attenuation seen within the anterior left frontal lobe suggestive for encephalomalacia from chronic infarct. Cerebellar atrophy. VENTRICLES: Unremarkable. No hydrocephalus. CALVARIUM: Unremarkable. PARANASAL SINUSES: Unremarkable as visualized. No significant inflammatory changes. MASTOID AIR CELLS: Unremarkable as visualized. No inflammatory changes. OTHER FINDINGS: None. IMPRESSION: No acute intracranial abnormality. 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 Prominent bilateral basal ganglia lacunar infarcts. Diffuse generalized parenchymal atrophy. If symptoms persists, consider correlation with MRI. A preliminary report was generated at 3:36 a.m. on 12/25/[address] Tad Rod from [facility].
--- NOTE | 2018-12-25 13:22 | RAD ---
Date of service: 12/25/2018 PROCEDURE: Right Femur Radiographs Right Knee Radiographs. HISTORY: knee pain COMPARISON: No prior. FINDINGS: BONES: Old fracture of the distal tibia. No acute fracture. Chronic changes. Calcific tendinitis versus heterotopic calcification in the region of the gluteal tendons near the greater trochanter. JOINTS: Tricompartmental narrowing with degenerative spurring. JOINT EFFUSION: None. OTHER FINDINGS: None. IMPRESSION: Old distal tibial fracture. Chronic changes. No acute fracture. Degenerative changes.
--- NOTE | 2018-12-25 13:24 | RAD ---
Date of service: 12/25/2018 HISTORY: syncope COMPARISON: No prior. FINDINGS: LUNGS: No active pulmonary disease. PLEURA: No significant pleural effusion identified, no pneumothorax apparent. CARDIOVASCULAR: Aortic atherosclerotic calcifications. Cardiomediastinal silhouette enlarged. OSSEOUS STRUCTURES: Spinal degenerative changes. VISUALIZED UPPER ABDOMEN: Normal. OTHER FINDINGS: None. IMPRESSION: No active disease.
[2018-12-26 00:22] VITALS: O2SAT 99
== END 2018-12-25 06:56 | disposition home or self-care (01) ==
LOC: C.ER 01:12
DX: S09.90XA Unspecified injury of head, initial encounter (principal); W01.0XXA Fall on same level from slipping, tripping and stumbling without subsequent striking against object, initial encounter; G89.29 Other chronic pain; M79.604 Pain in right leg; Z59.0 Homelessness
CPT/HCPCS: 70450; 71045; 73552; 73560; 80053; 81001; 84484; 85025; 99284; G0480